=== PATIENT | female | born 2000 | race Caucasian/White ===

== ENCOUNTER 2024-11-17 09:27 | Outpatient (AMB) | payer BC, SELFPAY ==
--- NOTE | 2024-11-17 09:36 | AMB.OBINITIA ---
Vital Signs 11/17/24 09:37 Height 1.7 m Height Method Stated Weight 76.771 kg Weight Measurement Method Standing Scale BMI 26.5 BP 127/77 Blood Pressure Source Automatic Cuff Blood Pressure Location Right Upper Arm Position Sitting Respiration 18 Pulse 83 Pulse Source Monitor Temp 98.1 F Temp Source Temporal Artery Scan Pulse Oximetry (%) 98 Oxygen Delivery Method Room Air Allergies/Home Meds Allergies & Medications Allergies NKA Allergy (Unknown, Uncoded 11/17/24 09:38) Medication Reconciliation vitamins with calcium no.72-iron 29 mg-folic acid 1 mg tablet ( Plus) 1 tab PO QDAY 90 days #90 tabs 11/17/24 [Rx] vits no.126-ferrous fum 28 mg iron-folic acid 800 mcg tablet (Classic ) tab PO 11/17/24 [History Confirmed 11/17/24] Intake Visit Data Collection New Patient or Established: Established Patient (seen at [facility] within 3 years) Reason for Visit:: obi Do You Feel Safe at Home: Yes Authorities Contacted: N/A PCP or OBGYN visit in last 3 months: Yes Last menstrual period: 09/28/24 Pain Present Currently: No Smoking Status Smoking Status: Never smoker Questionnaires Covid-19 Vaccine Questionnaire Has patient been vacinated for Covid-19 Have you been vacinated for Covid-19: Yes PHQ-9 PHQ-2 Over the last 2 weeks, how often have you been bothered by any of the following problems? 1. Little interest or pleasure in doing things: not at all 2. Feeling down, depressed, or hopeless: not at all Total score: 0 Depression screen completed yes Social History Living Situation History Marital Status: Single Lives With: Children Housing: House Tobacco History Smoking Status: Never smoker Alcohol History Alcohol Intake: Never Domestic Abuse History Do You Feel Safe at Home: Yes Past Medical History Past Medical History Have you ever been diagnosed with any of the following: Cardiology Problems Hypercholesterolemia: Yes Congestive Heart Failure: No Respiratory Problems Chronic Obstructive Pulmonary Disease (COPD): No Genital/Urinary Problems Renal Disease: No Endocrine Problems Diabetes Mellitus Type 1: No Diabetes Mellitus Type 2: No Other Problems Cancer: No History of Present Illness HPI Narrative 24-year-old 1 para 0 for initial OB appointment. Both patient and partner are happy about the . Last. September 28, 2024. EDC July 06, 2025. Menarche was at 15. Reports menses are every month x 2 days. Good dates. Patient denies social habits. Denies surgeries. Denies chronic illness. Denies SIB complaints. OB Initial Visit OB Flowsheet OB Flowsheet Initial Weight: Not Recorded Date <del>?</del> EGA Weight Edema CTX Effacement BP Fundal ht Pres Dilation Effacement Station Visit Note Alb Glu FHR Mov 11/17/24 <del>?</del> 7w 1d 76.771 kg absent absent 127/77 7 24-year-old 1 para 0 for initial OB. Denies SAB complaints. Last period September 28, 2024. EDC July 05, 2025. Good dates. Denies chronic illness. Denies social habits. Denies surgeries. Patient is currently taking vitamins. Schedule ultrasound for viability and dating. OB panel today. Prescription for vitamins. Discussed diet and weight gain to be expected. Discussed first trimester discomforts. Return in 4 weeks for OB check and NIPT. Spinal muscular atrophy and cystic fibrosis screens were done today with panel 24-year-old 1 para 0 for initial OB. Denies SAB complaints. Last period September 28, 2024. EDC July 05, 2025. Good dates. Denies chronic illness. Denies social habits. Denies surgeries. Patient is currently taking vitamins. Schedule ultrasound for viability and dating. OB panel today. Prescription for vitamins. Discussed diet and weight gain to be expected. Discussed first trimester discomforts. Return in 4 weeks for OB check and NIPT. Spinal muscular atrophy and cystic fibrosis screens were done today with panel. UA: pro-,glucose-, NIT-,ZAC- Menstrual History Menstrual reliability: definite Flow: normal Menstrual regularity: regular Monthly: Yes Age at menarche: 15 On control pills at conception: No Date of positive home test: 10/26/24 OB History : 1 Infection History & Risk Evaluation History of STDs: none HIV risk evaluation: low risk Hepatitis B risk evaluation: low risk Varicella/chicken pox status: immunized Genetic Screening & History Genetic Screening/Teratology Counseling - Includes patient, baby's father, or anyone in either family with: 1. Patient's age 35 years or older as of estimated date of delivery: No 2. Thalassemia (Serbian, Mongolian, Mediterranean, or Background); MCV less than 80: No 3. Neural Tube Defect (Meningomyelocele, Spina Bifida, or Anencephaly): No 4. Congenital Heart Defect: No 5. Down Syndrome: No 6. Elan-Sachs (Ashkenazi Gnosticism, Cajun, Czech [place]): No 7. Lala Disease (Ashkenazi Gnosticism): No 8. Familial Dysautonomia (Ashkenazi Gnosticism): No 9. Sickle Cell Disease or Trait (): No 10. Hemophilia or other blood disorders: No 11. Muscular Dystrophy: No 12. Cystic Fibrosis: No 13. Lunenburg's Chorea: No 14. Mental Retardation/Autism: No 15. Other inherited genetic or chromosomal disorder: No 16. Maternal Metabolic Disorder (EG,TYPE 1 Diabetes, PKU): No 17. Patient or baby's father had a child with defects not listed above: No 18. Recurrent loss or a stillbirth: No 19. Medications (including supplements, vitamins, herbs or otc drugs)/illicit/recreational drugs/alcohol since last menstrual period: No 20. Any other: No Infection History 1. Live with someone with TB or exposed to TB: No 2. Rash or viral illness since last menstrual period: No 3. Hepatitis B,C: No Other (see comments) Source: [employer] Review of Systems Review of Systems Systems Reviewed: All systems reviewed, normal except as documented Exam General Limitations: no limitations General Appearance: alert, in no apparent distress, comfortable, cooperative, healthy appearing, well developed and well groomed Chest Chest inspection: Present normal inspection and symmetric chest wall rise Resp Respiratory exam: Present normal lung sounds bilaterally Card Cardiovascular exam: Present regular rate, normal rhythm and normal heart sounds Abdominal Abdominal exam: Present soft and normal bowel sounds Psych Psychiatric exam: Present normal affect and normal mood Assessment & Plan Diagnosis / Problem List (1) Encounter for supervision of normal first , first trimester: Status: Acute Plan Refill vitamins. Discussed diet and weight gain with patient. Encouraged regular exercise 40 minutes a day. Discussed SAB precautions. panel with cystic fibrosis screening and spinal muscular atrophy screen today. Schedule ultrasound for viability and dating. Return in 4 weeks OB check Additional Plan Follow Up: 4 Weeks (obc) Office Procedures OB Clinic LOC & Office Proc's Nursing/Assessment Patient Status: Initial/New Patient OB Clinic Nursing Assessment: Medication Reconciliation, Update PMH in EMR and Vital Signs OB Clinic Coordination of Care: Complex Care and Chronic Disease 1-5, Education Complex Pt/Fam, Consent,records obtained, informed consent, Lab and Imaging orders, Results/Orders obtained and Staff clarify orders New Patient Charge New Patient Point Assignment: [id number] New Patient Point Charge: SECRETARY SPECIALIST Level 3 ([id number])
[2024-11-17 09:37] VITALS: BP 127/77; PULSE 83; RESP 18; TEMP 36.7; O2SAT 98; BMI 26.5
== END 2024-11-17 09:54 | disposition home or self-care (01) ==
LOC: HODSOBC 09:27
PROVIDERS: PCP Physician Assistant; Referring Provider Physician Assistant; Supervising Provider Advanced Practice Midwife; Visit Provider Advanced Practice Midwife
DX: Z34.01 Encounter for supervision of normal first pregnancy, first trimester (principal); Z3A.01 Less than 8 weeks gestation of pregnancy; Z36.8A Encounter for antenatal screening for other genetic defects
CPT/HCPCS: 99203; G0463

== ENCOUNTER 2024-12-21 14:51 | Outpatient (AMB) | payer BC, SELFPAY ==
--- NOTE | 2024-12-21 15:23 | OBCLNT_ITS ---
Vital Signs 12/21/24 15:24 Height 1.7 m Height Method Stated Weight 75.523 kg Weight Measurement Method Standing Scale BMI 26.1 BP 111/70 Blood Pressure Source Automatic Cuff Blood Pressure Location Right Upper Arm Position Sitting Respiration 14 Pulse 66 Pulse Source Monitor Temp 97.9 F Temp Source Oral Pulse Oximetry (%) 98 Oxygen Delivery Method Room Air Allergies/Home Meds Allergies & Medications Allergies NKA Allergy (Unknown, Uncoded 12/21/24 16:38) Medication Reconciliation vitamins with calcium no.72-iron 29 mg-folic acid 1 mg tablet ( Plus) 1 tab PO QDAY 90 days #90 tabs 11/17/24 [Rx Confirmed 12/21/24] vits no.126-ferrous fum 28 mg iron-folic acid 800 mcg tablet (Classic ) tab PO 11/17/24 [History Confirmed 11/17/24] Intake Visit Data Collection New Patient or Established: Established Patient (seen at [facility] within 3 years) Reason for Visit:: CARE Seen by Clinical Staff ONLY (RN/MA): No Supportability Engineer Required: No Do You Feel Safe at Home: Yes Authorities Contacted: N/A PCP or OBGYN visit in last 3 months: Yes Hx Now: Yes Are you currently on any form of Control: No Pain Present Currently: No Pain Scale Used: Quinones-Prabhakar/Numerical Pain scale:: 0 Smoking Status Smoking Status: Never smoker Questionnaires Covid-19 Vaccine Questionnaire Has patient been vacinated for Covid-19 Have you been vacinated for Covid-19: Yes PHQ-9 PHQ-2 Over the last 2 weeks, how often have you been bothered by any of the following problems? 1. Little interest or pleasure in doing things: not at all 2. Feeling down, depressed, or hopeless: not at all Total score: 0 PHQ-9 3. Trouble falling or staying asleep, or sleeping too much: Not at all 4. Feeling tired or having little energy: Not at all 5. Poor appetite or overeating: Not at all 6. Feeling bad about yourself - or that you are a failure or have let yourself or your family down: Not at all 7. Trouble concentrating on things, such as reading the newspaper or watching television: Not at all 8. Moving or speaking so slowly that other people could have noticed? - Or the opposite - being so fidgety or restless that you have been moving around a lot more than usual: not at all 9. Thoughts that you would be better off or of hurting yourself in some way: Not at all Total score: 0 Source: Developed by Drs. Tanmay Huffman, Alida Diaz, Rodrigo Luna and colleagues, with an educational tanvir from [employer] ( [employer] ). 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 Denies SAB complaints. Last period September 28, 2024. EDC July 05, 2025. Good dates. Denies chronic illness. Denies social habits. Denies surgeries. Patient is currently taking vitamins. Schedule ultrasound for viability and dating. OB panel today. Prescription for vitamins. Discussed diet and weight gain to be expected. Discussed first trimester discomforts. Return in 4 weeks for OB check and NIPT. Spinal muscular atrophy and cystic fibrosis screens were done today with panel 24-year-old 1 para 0 for initial OB. Denies SAB complaints. Last period September 28, 2024. EDC July 05, 2025. Good dates. Denies chronic illness. Denies social habits. Denies surgeries. Patient is currently taking vitamins. Schedule ultrasound for viability and dating. OB panel today. Prescription for vitamins. Discussed diet and weight gain to be expected. Discussed first trimester discomforts. Return in 4 weeks for OB check and NIPT. Spinal muscular atrophy and cystic fibrosis screens were done today with panel. UA: pro-,glucose-, NIT-,ZAC- 12/21/24 -?-?-?-?-?-?-?-?-?-?-?-?- 12w 0d 75.523 kg 111/70 Denies bleeding, leaking or cramps. denies 1st trimester discomfort. sono [facility] 11/25: 7w5. +FHT. IUP 11w3, no fht with doppler patient sent to [facility] for sono to evaluate viability. will do NIPT NV if fetus viable. discuss SAB precaution [facility] Calculator Estimated Delivery Date Method Current WG Current Estimate 07/05/25 LMP (Certain) 12w 0d Notes Visit Date: 12/21/24 Last Updated by: Angelina Wren, CNChandni 0+, abs-,rpr;;nr, rub imm, hbsag-,hiv-,hc-, GC/CT- neg carrier screens. 24 yo . LMP: 09/28/24. EDC 07/08/25. sono 11/25: 7w5; EDC by sono: 07/10/25 Office Procedures OB Clinic LOC & Office Proc's Nursing/Assessment Patient Status: Established Patient OB Clinic Nursing Assessment: Medication Reconciliation, Update PMH in EMR and Vital Signs OB Clinic Coordination of Care: Complex Care and Chronic Disease 1-5, Consent,records obtained, informed consent, Education Simp Pt/Fam, Lab and Imaging orders, Results/Orders obtained and Staff clarify orders Special Needs: Heart tones Established Patient Charge Established Patient Point Assignment: 135 Established Patient Point Charge: EP Level 4 (120-155) Assessment & Plan Diagnosis / Problem List (1) Encounter for supervision of normal first , first trimester: Status: Acute Plan To [facility] for sono for viability. no FHT with doppler, unable to See + cardiac motion on office sono. patient will need NIPT NV if fetus viable. discuss sab precaution. rtc 2 week Additional Plan Follow Up: 2 Weeks
[2024-12-21 15:24] VITALS: BP 111/70; PULSE 66; RESP 14; TEMP 36.6; O2SAT 98; BMI 26.1
== END 2024-12-21 16:24 | disposition home or self-care (01) ==
LOC: HODSOBC 14:51
PROVIDERS: PCP Physician Assistant; Referring Provider Physician Assistant; Supervising Provider Advanced Practice Midwife; Visit Provider Advanced Practice Midwife
DX: Z34.01 Encounter for supervision of normal first pregnancy, first trimester (principal); Z3A.12 12 weeks gestation of pregnancy
CPT/HCPCS: 99214; G0463

== ENCOUNTER 2024-12-21 16:31 | Emergency (ER) | payer BC, SELFPAY ==
[2024-12-21 16:40] VITALS: BP 121/67; PULSE 67; RESP 16; TEMP 36.8; O2SAT 98
--- NOTE | 2024-12-21 16:44 | XR_ITS ---
Examination: Complete OB ultrasound, less than 14 weeks, transabdominal Date and time of exam: December 21, 2024 1651 hours, unable to hear heart tones on examination by physician today Technique: Obstetrical ultrasound images less than 14 weeks performed via transabdominal imaging Findings: A normal shaped single intrauterine gestation is present in the uterus. pole 5.1 cm corresponds to 11 weeks 6 days gestational age Cardiac motion 164 BPM Ultrasonographic survey of visible and placental structures unremarkable. Amniotic fluid volume appears appropriate for this estimated gestational age. Right ovary 5.8 cm arterial flow 3.1 cm cyst Left ovary 3.3 cm arterial flow IMPRESSION: Viable intrauterine gestation of 11 weeks 6 days.
--- NOTE | 2024-12-21 16:47 | PD.EDRME ---
Rapid Medical Screening Exam RME Arrival date/time: 12/21/24 16:31 24-year-old female approximately 11 weeks presents to the emergency department stating she was seen by ADDICTION MEDICINE PHYSICIAN because she was unable to hear heart tones Chief Complaint: OB/Uterine Contractions Vital signs: Vital Signs Temperature 98.3 F 12/21/24 16:40 Pulse Rate 67 12/21/24 16:40 Respiratory Rate 16 12/21/24 16:40 Blood Pressure 121/67 12/21/24 16:40 Pulse Oximetry (%) 98 12/21/24 16:40 Oxygen Delivery Method Room Air 12/21/24 16:40
[2024-12-21 18:14] LABS: Basophils % (Auto) 0 % (0-2.5); Eosinophils # (Auto) 0.1 Thou/mm3 (0.0-0.5); Eosinophils % (Auto) 1 % (0-10); Hematocrit 36.5 % (36.0-46.0); Hemoglobin 13.2 g/dL (12.0-16.0); Immature Granulocytes % (Auto) 0 % (0-0); Immature Granulocytes Auto 0.04 Thou/mm3 (0.00-0.00); Lymphocytes # (Auto) 1.5 Thou/mm3 (1.0-4.8); Lymphocytes % (Auto) 14 % (10-50); Mean Corpuscular HGB Conc 36.2 g/dl (31.0-37.0); Mean Corpuscular Hemoglobin 31.1 pg (25.0-35.0); Mean Corpuscular Volume 86 fL (80-100); Monocytes # (Auto) 0.8 Thou/mm3 (0.0-0.8); Monocytes % (Auto) 7 % (0-12); Neutrophils # (Auto) 8.2 Thou/mm3 (1.8-7.7); Neutrophils % (Auto) 77 % (37-80); Nucleated Red Blood Cell % 0 /100 WBC (0); Platelet Count 275 Thou/mm3 (140-440); RDW Standard Deviation 40.4 fL (36.4-46.3); Red Blood Count 4.24 Miln/mm3 (4.00-5.20); White Blood Count 10.6 Thou/mm3 (3.6-11.0)
[2024-12-21 19:06] LABS: Alanine Aminotransferase 18 U/L (10-49); Albumin, Serum 4.6 gm/dL (3.5-5.0); Albumin/Globulin Ratio 1.8 (1.2-2.2); Alkaline Phosphatase 65 U/L (46-116); Anion Gap 12 (7-16); Aspartate Amino Transferase 23 U/L (0-34); BUN/Creatinine Ratio 8 Ratio (12-20); Bilirubin,Total 0.5 mg/dL (0.3-1.2); Blood Urea Nitrogen 5 mg/dL (9-23); Calcium 10.1 mg/dL (8.3-10.6); Calcium (Corrected) 10.1 mg/dL (8.5-10.1); Carbon Dioxide 23.5 mMol/L (20.0-31.0); Chloride 100 mMol/L (98-107); Creatinine (Component) 0.6 mg/dL (0.6-1.3); Globulin 2.5 gm/dL (2.3-3.5); Glucose 81 mg/dL (74-106); Osmolality,Calculated 266 (275-295); Potassium 4.2 mMol/L (3.4-5.1); Sodium 135 mMol/L (136-145); Total Protein 7.1 gm/dL (5.7-8.2); eGFR > 60 See Note
[2024-12-21 19:51] LABS: Beta HCG,Quantitative 100494 mIU/mL (<5.0)
--- NOTE | 2024-12-21 20:42 | PD.EDPREG ---
ED OB Contraction Preg RMI/HPI General Chief complaint: OB/Uterine Contractions Stated complaint: 12 WKS PREG; SENT BY MARGARITA WHO WANTS CALL Time Seen by Provider: 12/21/24 20:41 Arrival date/time: 12/21/24 16:31 RME / HPI RME / HPI Narrative: 12/21/24 16:31 24-year-old female approximately 11 weeks presents to the emergency department stating she was seen by BAKING POWDER MIXER because she was unable to hear heart tones --------- Dr. Alberto?s Main ED Evaluation: 24yo female who is ~11 weeks gestation presents to the ED after being sent over by her BAKING POWDER MIXER. Patient states she was seen by Angelina Wren today, reporting she was unable to find the heart tones or visualize the fetus on an ultrasound, so she sent her over for evaluation. Patient denies any fever, chills, abdominal cramping, vaginal spotting or any other associated symptoms. NKA. Related Data Home Medications ?Medication ?Instructions ?Recorded ?Confirmed vits no.126-ferrous fum tab PO 11/17/24 11/17/24 28 mg iron-folic acid 800 mcg tablet (Classic ) Previous Rx's ?Medication ?Instructions ?Recorded vitamins with calcium 1 tab PO QDAY 90 days #90 tabs 11/17/24 no.72-iron 29 mg-folic acid 1 mg tablet ( Plus) Allergies Allergy/AdvReac Type Severity Reaction Status Date / Time NKA Allergy Unknown Uncoded 12/21/24 16:38 Review of Systems Review of Systems Systems Reviewed: All systems reviewed, normal except as documented ED Exam Narrative Physical exam: GENERAL APPEARANCE: alert and oriented x 4, well-developed, well-nourished, no acute distress VITALS: All vitals were reviewed and the pulse ox is 98% on room air, which is normal according to my interpretation. HEENT: Normocephalic, atraumatic; pupils equal, round, reactive to light; EOMI; mucous membranes pink, moist; oropharynx clear NECK: Supple LUNGS: CTABL; no wheezes, no rales, no rhonchi HEART: Regular rate, regular rhythm; normal S1, S2; no murmurs ABDOMEN: non distended; normal BS; soft, no tenderness, no guarding, no rebound; no masses, no organomegaly, no hernia BACK: no CVA tenderness EXTREMITIES: atraumatic; no edema NEUROLOGIC: awake; alert and oriented x4; cranial nerves II-XII grossly intact; no focal sensory or motor deficits PSYCHIATRIC: appropriate mood and affect SKIN: warm, dry, normal color; no rashes Course Quality Measures none Orders Category Date Time Status US OB <= 14 weeks fetus Stat Exams 12/21/24 16:44 Completed ABO/RH Type Stat Lab 12/21/24 17:52 Completed Beta HCG,Quantitative Stat Lab 12/21/24 17:52 Completed CBC Stat Lab 12/21/24 17:52 Completed Comprehensive Metabolic Panel Stat Lab 12/21/24 17:52 Completed Vital Signs Vital signs: Vital Signs Temperature 98.3 F 12/21/24 16:40 Pulse Rate 67 12/21/24 16:40 Respiratory Rate 16 12/21/24 16:40 Blood Pressure 121/67 12/21/24 16:40 Pulse Oximetry (%) 98 12/21/24 16:40 Oxygen Delivery Method Room Air 12/21/24 16:40 OB/Uterine Contractions MDM Narrative MDM Narrative:: Scribe Attestation: 12/21/24 - Shahla Herrera am scribing for and in the presence of Dr. Alberto. Patient data External records reviewed:: [facility] previous records (Per chart review, patient has no relevant previous ED visits.) Clinical information provided by:: patient Social determinants that could affect healthcare access:: none Patient has the following chronic illnesses:: none How is presenting disease/condition affected by chronic disease/condition?: no chronic disease Evaluation data The following diagnostics were reviewed and interpreted by me:: lab results and radiology exam(s) Lab and/or radiology exams considered but not ordered:: none Interpretation Summary: CBC and CBC are normal. Beta HCG is [id number]. ------- [facility] [place] [facility] Report Signed Patient: CINDY CHAMPAGNE Record#: [id number] Birthdate: 2000 Age/Sex: 24 / F Location: [facility] Attending Dr: Ordering Physician: Braenn BOND)Jhon NP Date of Service: 12/21/24 Procedure(s): US OB <= 14 weeks fetus Accession Number(s): [id number] cc: Breann BOND)Jhon NP; Chico Samuels MD; NO PRIMARY/FAMILY,PHYSICIAN~ Examination: Complete OB ultrasound, less than 14 weeks, transabdominal Date and time of exam: December 21, 2024 1651 hours, unable to hear heart tones on examination by physician today Technique: Obstetrical ultrasound images less than 14 weeks performed via transabdominal imaging Findings: A normal shaped single intrauterine gestation is present in the uterus. pole 5.1 cm corresponds to 11 weeks 6 days gestational age Cardiac motion 164 BPM Ultrasonographic survey of visible and placental structures unremarkable. Amniotic fluid volume appears appropriate for this estimated gestational age. Right ovary 5.8 cm arterial flow 3.1 cm cyst Left ovary 3.3 cm arterial flow IMPRESSION: Viable intrauterine gestation of 11 weeks 6 days. Dictated By: Chico Samuels MD Signed By: <Electronically signed by Chico Samuels MD in OV> 12/21/24 4329 Medications / Prescriptions Medications or Prescriptions considered but not ordered:: none Medication administrations:: none Consultations Consultation(s) initiated? (list below): No Diagnosis OB Contractions Differential Diagnosis: other ( demise, completed miscarriage, inevitable miscarriage, normal IP) Most likely diagnosis given after review of the tests above:: see clinical impression below Admission Indicated Admission indicated?: not indicated Explain why admission is indicated or not indicated:: Diagnostics are unremarkable. Patient is stable to be discharged home. Admission Request Was there a request for admission?: No Disposition Plan Disposition Plan: Discharge Discharge Attestation Discharge Attestation: The patient and all family members were given an opportunity to ask questions and understood the discharge instructions. Discharge instructions specifically effects, indications for sooner follow up or return to the emergency department, and the expected course of current diagnosis. Patient condition: Stable Discharge Plan Plan Patient Disposition: HOME (Self Care) Discharge Disposition comment: Stable for discharge home Patient condition on transfer: Stable Prescriptions/Referrals Prescriptions/Med Rec: No Action Classic 28 mg iron- 800 mcg tablet PO Plus 29 mg iron- 1 mg tablet 1 tab PO QDAY 90 Days Qty: 90 3RF Referrals: Angelina Wren CNM [Certified Nurse Convention Planner] - In 1 week No Primary/Family,Physician [Primary Care Provider] - In 1 week Problem List Clinical Impression: Encounter for supervision of normal first , first trimester Patient/Caregiver Discharge Instructions Discharge Activity: activity as tolerated Education Materials: First Trimester Additional Instructions: Please return to the emergency department if you have any worsening or any further medical problems and we will help you. Otherwise you should follow-up with your primary care doctor within the next several days Today your ultrasound showed that the baby is 11 weeks and 6 days old. Baby has a normal heart rate, and there does not seem to be any problems Print Language: Slovak Stand Alone Forms: Kim Award Info., Patient Portal Info Letter
[2024-12-21 20:52] VITALS: RESP 16
== END 2024-12-21 20:52 | disposition home or self-care (01) ==
PROVIDERS: Nurse Practitioner Primary Care; Emergency Provider Emergency Medicine
DX: Z34.01 Encounter for supervision of normal first pregnancy, first trimester (principal); Z3A.12 12 weeks gestation of pregnancy
CPT/HCPCS: 36415; 76801; 80053; 84702; 85025; 86900; 86901; 99284

== ENCOUNTER 2025-01-06 15:34 | Outpatient (AMB) | payer BC, SELFPAY ==
[2025-01-06 15:50] VITALS: BP 110/67; PULSE 94; RESP 18; TEMP 36; O2SAT 98; BMI 22.9
--- NOTE | 2025-01-06 15:50 | AMB.OBVISIT ---
Vital Signs 01/06/25 15:50 Height 1.7 m Height Method Stated Weight 66.338 kg Weight Measurement Method Standing Scale BMI 22.9 BP 110/67 Blood Pressure Source Automatic Cuff Blood Pressure Location Left Upper Arm Position Standing Respiration 18 Pulse 94 Pulse Source Monitor Temp 96.8 F Temp Source Oral Pulse Oximetry (%) 98 Oxygen Delivery Method Room Air Allergies/Home Meds Allergies & Medications Allergies NKA Allergy (Unknown, Uncoded 01/06/25 15:52) Medication Reconciliation vitamins with calcium no.72-iron 29 mg-folic acid 1 mg tablet ( Plus) 1 tab PO QDAY 90 days #90 tabs 11/17/24 [Rx Confirmed 01/06/25] vits no.126-ferrous fum 28 mg iron-folic acid 800 mcg tablet (Classic ) tab PO 11/17/24 [History Confirmed 01/06/25] vitamin-ferrous fumarate 28 mg iron-folic acid 800 mcg tablet ( Vitamins with Minerals) 1 tab PO QDAY #60 tabs 01/06/25 [Rx] Intake Visit Data Collection New Patient or Established: Established Patient (seen at [facility] within 3 years) Reason for Visit:: OBC Seen by Clinical Staff ONLY (RN/MA): No Preservationist Required: No Do You Feel Safe at Home: Yes Authorities Contacted: N/A PCP or OBGYN visit in last 3 months: Yes Hx Now: No Are you currently on any form of Control: No Smoking Status Smoking Status: Never smoker Questionnaires PHQ-9 PHQ-2 Over the last 2 weeks, how often have you been bothered by any of the following problems? 1. Little interest or pleasure in doing things: not at all PHQ-9 8. Moving or speaking so slowly that other people could have noticed? - Or the opposite - being so fidgety or restless that you have been moving around a lot more than usual: not at all Source: Developed by Drs. Tanmay Huffman, Alida Diaz, Rodrigo Luna and colleagues, with an educational tanvir from [employer]. 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 Denies SAB complaints. Last period September 28, 2024. EDC July 05, 2025. Good dates. Denies chronic illness. Denies social habits. Denies surgeries. Patient is currently taking vitamins. Schedule ultrasound for viability and dating. OB panel today. Prescription for vitamins. Discussed diet and weight gain to be expected. Discussed first trimester discomforts. Return in 4 weeks for OB check and NIPT. Spinal muscular atrophy and cystic fibrosis screens were done today with panel 24-year-old 1 para 0 for initial OB. Denies SAB complaints. Last period September 28, 2024. EDC July 05, 2025. Good dates. Denies chronic illness. Denies social habits. Denies surgeries. Patient is currently taking vitamins. Schedule ultrasound for viability and dating. OB panel today. Prescription for vitamins. Discussed diet and weight gain to be expected. Discussed first trimester discomforts. Return in 4 weeks for OB check and NIPT. Spinal muscular atrophy and cystic fibrosis screens were done today with panel. UA: pro-,glucose-, NIT-,ZAC- 12/21/24 <del>?</del> 12w 0d 75.523 kg 111/70 Denies bleeding, leaking or cramps. denies 1st trimester discomfort. sono at [facility] 11/25: 7w5. +FHT. IUP 11w3, no fht with doppler patient sent to [facility] for sono to evaluate viability. will do NIPT NV if fetus viable. discuss SAB precaution 01/06/25 <del>?</del> 14w 2d 66.338 kg 110/67 absent unknown 14 145 active denies leaking, bleeding or cramps. reports light FM MFM appt 02/25/25, discuss sab precaution. hydrate. rtc 4 week OBC ABY Calculator Estimated Delivery Date Method Current WG Current Estimate 07/05/25 LMP (Certain) 14w 2d Notes Visit Date: 12/21/24 Last Updated by: Angelina Wren, CNM 0+, abs-,rpr;;nr, rub imm, hbsag-,hiv-,hc-, GC/CT- neg carrier screens. 24 yo . LMP: 09/28/24. EDC 07/08/25. sono 11/25: 7w5; EDC by sono: 07/10/25 Office Procedures OB Clinic LOC & Office Proc's Nursing/Assessment Patient Status: Established Patient OB Clinic Nursing Assessment: Medication Reconciliation, Update PMH in EMR and Vital Signs OB Clinic Coordination of Care: Education Complex Pt/Fam, Consent,records obtained, informed consent, Lab and Imaging orders, Results/Orders obtained and Staff clarify orders Special Needs: Heart tones Established Patient Charge Established Patient Point Assignment: 115 Established Patient Point Charge: EP Level 3 (80-115) Assessment & Plan Diagnosis / Problem List (1) Supervision of high risk , unspecified, unspecified trimester: Status: Acute Plan mfm appointment 02/25/25, discuss sab precaution. hydrate. RTC 4 week obc Additional Plan Follow Up: 4 Weeks (obc)
== END 2025-01-06 16:09 | disposition home or self-care (01) ==
LOC: HODSOBC 15:34
PROVIDERS: PCP Advanced Practice Midwife; Referring Provider Advanced Practice Midwife; Supervising Provider Advanced Practice Midwife; Visit Provider Advanced Practice Midwife
DX: O09.92 Supervision of high risk pregnancy, unspecified, second trimester (principal); Z3A.14 14 weeks gestation of pregnancy
CPT/HCPCS: 99213; G0463

== ENCOUNTER 2025-02-08 14:58 | Outpatient (AMB) | payer BC, SELFPAY ==
[2025-02-08 15:18] VITALS: BP 108/72; PULSE 92; RESP 17; TEMP 36.8; O2SAT 95; BMI 26.9
--- NOTE | 2025-02-08 15:18 | OBCLNT_ITS ---
Vital Signs 02/08/25 15:18 Height 1.7 m Height Method Measured Weight 77.678 kg Weight Measurement Method Standing Scale BMI 26.9 BP 108/72 Blood Pressure Source Automatic Cuff Blood Pressure Location Right Upper Arm Position Sitting Respiration 17 Pulse 92 Pulse Source Monitor Temp 98.3 F Temp Source Temporal Artery Scan Pulse Oximetry (%) 95 Oxygen Delivery Method Room Air Allergies/Home Meds Allergies & Medications Allergies NKA Allergy (Unknown, Uncoded 02/08/25 15:18) Medication Reconciliation vits no.126-ferrous fum 28 mg iron-folic acid 800 mcg tablet (Classic ) tab PO 11/17/24 [History Confirmed 02/08/25] Intake Visit Data Collection New Patient or Established: Established Patient (seen at [facility] within 3 years) Reason for Visit:: OBC Consent obtained for Telemed Visit: No Seen by Clinical Staff ONLY (RN/MA): No 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 1. Little interest or pleasure in doing things: not at all PHQ-9 8. Moving or speaking so slowly that other people could have noticed? - Or the opposite - being so fidgety or restless that you have been moving around a lot more than usual: not at all Source: Developed by Drs. Tanmay Huffman, Alida Diaz, Rodrigo Luna and colleagues, with an educational tanvir from [employer]. 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 Denies SAB complaints. Last period September 28, 2024. EDC July 05, 2025. Good dates. Denies chronic illness. Denies social habits. Denies surgeries. Patient is currently taking vitamins. Schedule ultrasound for viability and dating. OB panel today. Prescription for vitamins. Discussed diet and weight gain to be expected. Discussed first trimester discomforts. Return in 4 weeks for OB check and NIPT. Spinal muscular atrophy and cystic fibrosis screens were done today with panel 24-year-old 1 para 0 for initial OB. Denies SAB complaints. Last period September 28, 2024. EDC July 05, 2025. Good dates. Denies chronic illness. Denies social habits. Denies surgeries. Patient is currently taking vitamins. Schedule ultrasound for viability and dating. OB panel today. Prescription for vitamins. Discussed diet and weight gain to be expected. Discussed first trimester discomforts. Return in 4 weeks for OB check and NIPT. Spinal muscular atrophy and cystic fibrosis screens were done today with panel. UA: pro-,glucose-, NIT-,ZAC- 12/21/24 -?-?-?-?-?-?-?-?-?-?-?-?- 12w 0d 75.523 kg 111/70 Denies bleeding, leaking or cramps. denies 1st trimester discomfort. sono at [facility] 11/25: 7w5. +FHT. IUP 11w3, no fht with doppler patient sent to [facility] for sono to evaluate viability. will do NIPT NV if fetus viable. discuss SAB precaution 01/06/25 -?-?-?-?-?-?-?-?-?-?-?-?- 14w 2d 66.338 kg 110/67 absent unknown 14 145 active denies leaking, bleeding or cramps. reports light FM MFM appt 02/25/25, discuss sab precaution. hydrate. rtc 4 week OBC 02/08/25 -?-?-?-?-?-?-?-?-?-?-?-?- 19w 0d 77.678 kg 108/72 absent unknown 19 145 active Denies leaking. Denies bleeding. Denies cramps. Light movement positive patient has her anatomy scan coming up February 25. discuss sab precaution, AFP, mfm appt 02/25, discuss sab precaution. rtc 4 week obc ABY Calculator Estimated Delivery Date Method Current WG Current Estimate 07/05/25 LMP (Certain) 19w 0d Notes Visit Date: 02/08/25 Last Updated by: Angelina Wren CNM 02/08: NIPT-/Male, carrier screen- Visit Date: 12/21/24 Last Updated by: Angelina Wren CNM 0+, abs-,rpr;;nr, rub imm, hbsag-,hiv-,hc-, GC/CT- neg carrier screens. 24 yo . LMP: 09/28/24. EDC 07/08/25. sono 11/25: 7w5; EDC by sono: 07/10/25 Office Procedures OB Clinic LOC & Office Proc's Nursing/Assessment Patient Status: Established Patient OB Clinic Nursing Assessment: Medication Reconciliation and Update PMH in EMR OB Clinic Coordination of Care: Complex Care and Chronic Disease 1-5, Consent,records obtained, informed consent, Education Simp Pt/Fam and 4+ Aut horizations needed Special Needs: Heart tones Established Patient Charge Established Patient Point Assignment: 115 Established Patient Point Charge: EP Level 3 (80-115) Assessment & Plan Diagnosis / Problem List (1) Encounter for supervision of other normal , second trimester: Status: Acute Plan discuss venkat precaution, AFP, anatomy scan 02/25, hydrate, continue PNV, rtc 4 week obc Additional Plan Follow Up: 4 Weeks (obc)
== END 2025-02-08 16:13 | disposition home or self-care (01) ==
LOC: HODSOBC 14:58
PROVIDERS: PCP Advanced Practice Midwife; Referring Provider Advanced Practice Midwife; Supervising Provider Advanced Practice Midwife; Visit Provider Advanced Practice Midwife
DX: Z34.02 Encounter for supervision of normal first pregnancy, second trimester (principal); Z3A.19 19 weeks gestation of pregnancy
CPT/HCPCS: 99213; G0463

== ENCOUNTER 2025-02-17 10:44 | Observation (INO) | payer BC, SELFPAY ==
[2025-02-17 10:54] VITALS: BP 131/82; PULSE 91
[2025-02-17 11:11] VITALS: BP 94/51; PULSE 88
[2025-02-17 11:14] VITALS: BP 131/82; PULSE 91; RESP 18; RESP 99; TEMP 36.9; BMI 26.6
--- NOTE | 2025-02-17 11:22 | XR_ITS ---
Examination: Complete OB ultrasound greater than 14 weeks Date and time of exam: February 17, 2025 1140 hours INDICATIONS: Onset vaginal bleeding today Findings: Viable intrauterine single fetus with single amniotic sac presentation cephalic Cardiac motion 140 BPM Placenta anterior grade 2 Umbilical cord insertion seen Amniotic fluid index 11.5 cm Cervix 3.4 cm Ovaries obscured by bowel gas. Composite estimated gestational age based on BPD, head circumference, abdominal circumference, femur length is 20 weeks 1 day Estimated weight 318 g. Survey of intracranial anatomy, spinal anatomy, abdominal anatomy, four-chamber heart performed with no abnormalities identified. Impression: Viable intrauterine gestation cephalic presentation.
[2025-02-17 11:34] LABS: Collection Type, Urine Clean Catch
[2025-02-17 11:44] LABS: Bacteria,Urine 2+; Bilirubin,Urine Negative (Negative); Blood,Urine Negative (Negative); Clarity,Urine Clear (Clear/Hazy); Color,Urine Yellow (Lt Yel-Yel); Glucose, Urine Trace (Negative); Ketones,Urine Negative (Negative); Leukocyte Esterase,Urine Positive (Negative); Nitrite,Urine Negative (Negative); PH,Urine 5.5 (5.0-7.0); Protein,Urine Trace (Neg - Trace); RBC,Urine 5 /hpf (0-3); Specific Gravity,Urine 1.025 (1.001-1.035); Squamous Epithelial Cell,Urine 11 /hpf (0-5); Urobilinogen,Urine Negative mg/dL (0.0-1.0); WBC,Urine 6 /hpf (0-5)
== END 2025-02-17 12:40 | disposition home or self-care (01) ==
PROVIDERS: Admitting Provider Obstetrics & Gynecology; Visit Provider Obstetrics & Gynecology
DX: O26.852 Spotting complicating pregnancy, second trimester (principal); Z3A.20 20 weeks gestation of pregnancy
CPT/HCPCS: 59025; 59899; 76805; 81001; 87086

== ENCOUNTER 2025-03-08 09:52 | Outpatient (AMB) | payer BC, SELFPAY ==
[2025-03-08 10:06] VITALS: BP 110/70; PULSE 99; RESP 17; TEMP 36.6; O2SAT 97; BMI 27.5
--- NOTE | 2025-03-08 10:06 | AMB.OBVISIT ---
Vital Signs 03/08/25 10:06 Height 1.7 m Height Method Measured Weight 79.605 kg Weight Measurement Method Standing Scale BMI 27.5 BP 110/70 Blood Pressure Source Automatic Cuff Blood Pressure Location Right Upper Arm Position Sitting Respiration 17 Pulse 99 Pulse Source Monitor Temp 97.9 F Temp Source Temporal Artery Scan Pulse Oximetry (%) 97 Oxygen Delivery Method Room Air Allergies/Home Meds Allergies & Medications Allergies NKA Allergy (Unknown, Uncoded 03/08/25 10:07) Medication Reconciliation vits no.126-ferrous fum 28 mg iron-folic acid 800 mcg tablet (Classic ) tab PO 11/17/24 [History Confirmed 03/08/25] vits no.130-ferrous fum 27 mg iron-folic acid 800 mcg tablet ( Vitamin) 1 tab PO QDAY pregancy #60 tabs 03/08/25 [Rx] Intake Visit Data Collection New Patient or Established: Established Patient (seen at [facility] within 3 years) Reason for Visit:: OBC Consent obtained for Telemed Visit: No Seen by Clinical Staff ONLY (RN/MA): No 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 1. Little interest or pleasure in doing things: not at all PHQ-9 8. Moving or speaking so slowly that other people could have noticed? - Or the opposite - being so fidgety or restless that you have been moving around a lot more than usual: not at all Source: Developed by Drs. Tanmay Huffman, Alida Diaz, Rodrigo Luna and colleagues, with an educational tanvir from [employer]. 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 Denies SAB complaints. Last period September 28, 2024. EDC July 05, 2025. Good dates. Denies chronic illness. Denies social habits. Denies surgeries. Patient is currently taking vitamins. Schedule ultrasound for viability and dating. OB panel today. Prescription for vitamins. Discussed diet and weight gain to be expected. Discussed first trimester discomforts. Return in 4 weeks for OB check and NIPT. Spinal muscular atrophy and cystic fibrosis screens were done today with panel 24-year-old 1 para 0 for initial OB. Denies SAB complaints. Last period September 28, 2024. EDC July 05, 2025. Good dates. Denies chronic illness. Denies social habits. Denies surgeries. Patient is currently taking vitamins. Schedule ultrasound for viability and dating. OB panel today. Prescription for vitamins. Discussed diet and weight gain to be expected. Discussed first trimester discomforts. Return in 4 weeks for OB check and NIPT. Spinal muscular atrophy and cystic fibrosis screens were done today with panel. UA: pro-,glucose-, NIT-,ZAC- 12/21/24 <del>?</del> 12w 0d 75.523 kg 111/70 Denies bleeding, leaking or cramps. denies 1st trimester discomfort. sono at [facility] 11/25: 7w5. +FHT. IUP 11w3, no fht with doppler patient sent to [facility] for sono to evaluate viability. will do NIPT NV if fetus viable. discuss SAB precaution 01/06/25 <del>?</del> 14w 2d 66.338 kg 110/67 absent unknown 14 145 active denies leaking, bleeding or cramps. reports light FM MFM appt 02/25/25, discuss sab precaution. hydrate. rtc 4 week OBC 02/08/25 <del>?</del> 19w 0d 77.678 kg 108/72 absent unknown 19 145 active Denies leaking. Denies bleeding. Denies cramps. Light movement positive patient has her anatomy scan coming up February 25. discuss sab precaution, AFP, mfm appt 02/25, discuss sab precaution. rtc 4 week obc 03/08/25 <del>?</del> 23w 0d 79.605 kg 110/70 absent unknown 23 155 active No OB complaints. Doing well. Reports movement. Denies contractions. Denies bleeding. Denies leaking Third trimester labs today. Discussed diet and weight. Increase fluids. Discussed precautions. Return in 4 weeks OB check Third trimester labs today. Discussed diet and weight. Increase fluids. Discussed precautions. Return in 4 weeks OB check. f/u mfm 05/06 ABY Calculator Estimated Delivery Date Method Current WG Current Estimate 07/05/25 LMP (Certain) 23w 0d Other Estimates 07/05/25 Ultrasound #1 23w 0d Notes Visit Date: 03/08/25 Last Updated by: Angelina Wren CNM 25 yo . LMP 09/28/24. edc: 07/05/25. O+,abs-, rpr;;nr, rub imm, HBSAG-,HIV-, GC/CT-, NIPT:neg, sma/cf- Visit Date: 02/08/25 Last Updated by: Angelina Wren CNM 02/08: NIPT-/Male, carrier screen- Visit Date: 12/21/24 Last Updated by: Angelina Wren CNM 0+, abs-,rpr;;nr, rub imm, hbsag-,hiv-,hc-, GC/CT- neg carrier screens. 24 yo . LMP: 09/28/24. EDC 07/08/25. sono 11/25: 7w5; EDC by se: 07/10/25 Office Procedures OB Clinic LOC & Office Proc's Nursing/Assessment Patient Status: Established Patient OB Clinic Nursing Assessment: Medication Reconciliation, Update PMH in EMR and Vital Signs OB Clinic Coordination of Care: Complex Care and Chronic Disease 1-5, Consent,records obtained, informed consent, Education Simp Pt/Fam, 4+ Authorizations needed, Lab and Imaging orders, Ref for ancillary service and Results/Orders obtained Special Needs: Heart tones Established Patient Charge Established Patient Point Assignment: 180 Established Patient Point Charge: EP Level 5 (160-above) Assessment & Plan Diagnosis / Problem List (1) Encounter for supervision of other normal , second trimester: Status: Acute (2) Supervision of high risk , unspecified, unspecified trimester: Status: Acute Plan Third trimester labs today. Reviewed labs. Discussed diet and weight. Decrease sugary foods. Discussed labor precautions. Increase fluids. Refill prenatals. Return in 4 weeks OB check. Follow-up maternal- medicine appointment April 26 Additional Plan Follow Up: 2 Weeks 4 Weeks (obc)
== END 2025-03-08 10:31 | disposition home or self-care (01) ==
LOC: HODSOBC 09:52
PROVIDERS: Supervising Provider Advanced Practice Midwife; Visit Provider Advanced Practice Midwife
DX: Z34.02 Encounter for supervision of normal first pregnancy, second trimester (principal); Z3A.23 23 weeks gestation of pregnancy
CPT/HCPCS: 99215; G0463

== ENCOUNTER → 2025-03-15 | Outpatient (CLI) | payer BC, SELFPAY ==
[2025-03-15 10:54] LABS: Glucose,Fasting Gestational 85 mg/dL (70-120)
[2025-03-15 12:15] LABS: Glucose 1 Hour, Gest 164 mg/dL (50-190)
[2025-03-15 12:28] LABS: Glucose 2 Hour,Gest 158 mg/dL (50-165)
[2025-03-15 13:53] LABS: Glucose 3 Hour, Gest 119 mg/dL (50-145)
== END | disposition home or self-care (01) ==
LOC: COPL 09:30
PROVIDERS: PCP Physician Assistant; Referring Provider Advanced Practice Midwife; Visit Provider Advanced Practice Midwife
DX: O24.420 Gestational diabetes mellitus in childbirth, diet controlled (principal); Z3A.00 Weeks of gestation of pregnancy not specified
CPT/HCPCS: 36415; 82951; 82952

== ENCOUNTER 2025-04-08 10:03 | Outpatient (AMB) | payer BC, SELFPAY ==
--- NOTE | 2025-04-08 10:13 | AMB.OBVISIT ---
Vital Signs 04/08/25 10:14 Height 1.7 m Height Method Stated Weight 83.064 kg Weight Measurement Method Standing Scale BMI 28.7 BP 127/79 Blood Pressure Source Automatic Cuff Blood Pressure Location Left Upper Arm Position Sitting Respiration 16 Pulse 109 H Pulse Source Monitor Temp 97.0 F Temp Source Oral Pulse Oximetry (%) 98 Oxygen Delivery Method Room Air Allergies/Home Meds Allergies & Medications Allergies NKA Allergy (Unknown, Uncoded 04/08/25 10:15) Medication Reconciliation vits no.126-ferrous fum 28 mg iron-folic acid 800 mcg tablet (Classic ) tab PO 11/17/24 [History Confirmed 04/08/25] vits no.130-ferrous fum 27 mg iron-folic acid 800 mcg tablet ( Vitamin) 1 tab PO QDAY pregancy #60 tabs 03/08/25 [Rx Confirmed 04/08/25] Intake Visit Data Collection New Patient or Established: Established Patient (seen at [facility] within 3 years) Reason for Visit:: OBC Seen by Clinical Staff ONLY (RN/MA): No Visual Associate Required: No Do You Feel Safe at Home: Yes Authorities Contacted: N/A PCP or OBGYN visit in last 3 months: Yes Date of Last PCP or OBGYN visit: 03/08/25 Hx Now: Yes Are you currently on any form of Control: No Pain Present Currently: No Pain Scale Used: Quinones-Prabhakar/Numerical Pain scale:: 0 Smoking Status Smoking Status: Never smoker Questionnaires Covid-19 Vaccine Questionnaire Has patient been vacinated for Covid-19 Have you been vacinated for Covid-19: Yes PHQ-9 PHQ-2 Over the last 2 weeks, how often have you been bothered by any of the following problems? 1. Little interest or pleasure in doing things: not at all 2. Feeling down, depressed, or hopeless: not at all Total score: 0 PHQ-9 3. Trouble falling or staying asleep, or sleeping too much: Not at all 4. Feeling tired or having little energy: Not at all 5. Poor appetite or overeating: Not at all 6. Feeling bad about yourself - or that you are a failure or have let yourself or your family down: Not at all 7. Trouble concentrating on things, such as reading the newspaper or watching television: Not at all 8. Moving or speaking so slowly that other people could have noticed? - Or the opposite - being so fidgety or restless that you have been moving around a lot more than usual: not at all 9. Thoughts that you would be better off or of hurting yourself in some way: Not at all Total score: 0 If you checked off any problems, how difficult have these problems made it for you to do your work, take care of things at home, or get along with other people?: not difficult at all Source: Developed by Drs. Tanmay Huffman, Alida Diaz, Rodrigo Luna and colleagues, with an educational tanvir from [employer] 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 Denies SAB complaints. Last period September 28, 2024. EDC July 05, 2025. Good dates. Denies chronic illness. Denies social habits. Denies surgeries. Patient is currently taking vitamins. Schedule ultrasound for viability and dating. OB panel today. Prescription for vitamins. Discussed diet and weight gain to be expected. Discussed first trimester discomforts. Return in 4 weeks for OB check and NIPT. Spinal muscular atrophy and cystic fibrosis screens were done today with panel 24-year-old 1 para 0 for initial OB. Denies SAB complaints. Last period September 28, 2024. EDC July 05, 2025. Good dates. Denies chronic illness. Denies social habits. Denies surgeries. Patient is currently taking vitamins. Schedule ultrasound for viability and dating. OB panel today. Prescription for vitamins. Discussed diet and weight gain to be expected. Discussed first trimester discomforts. Return in 4 weeks for OB check and NIPT. Spinal muscular atrophy and cystic fibrosis screens were done today with panel. UA: pro-,glucose-, NIT-,ZAC- 12/21/24 <del>?</del> 12w 0d 75.523 kg 111/70 Denies bleeding, leaking or cramps. denies 1st trimester discomfort. sono at [facility] 11/25: 7w5. +FHT. IUP 11w3, no fht with doppler patient sent to [facility] for sono to evaluate viability. will do NIPT NV if fetus viable. discuss SAB precaution 01/06/25 <del>?</del> 14w 2d 66.338 kg 110/67 absent unknown 14 145 active denies leaking, bleeding or cramps. reports light FM MFM appt 02/25/25, discuss sab precaution. hydrate. rtc 4 week OBC 02/08/25 <del>?</del> 19w 0d 77.678 kg 108/72 absent unknown 19 145 active Denies leaking. Denies bleeding. Denies cramps. Light movement positive patient has her anatomy scan coming up February 25. discuss sab precaution, AFP, mfm appt 02/25, discuss sab precaution. rtc 4 week obc 03/08/25 <del>?</del> 23w 0d 79.605 kg 110/70 absent unknown 23 155 active No OB complaints. Doing well. Reports movement. Denies contractions. Denies bleeding. Denies leaking Third trimester labs today. Discussed diet and weight. Increase fluids. Discussed precautions. Return in 4 weeks OB check Third trimester labs today. Discussed diet and weight. Increase fluids. Discussed precautions. Return in 4 weeks OB check. f/u mfm 05/0604/08/25 <del>?</del> 27w 3d 83.064 kg 127/79 absent unknown 27 155 active No OB complaints. Doing well. Denies leaking, denies bleeding, denies contractions. Reports good movement Discussed 1 hour and 3-hour labs. Continue with GDM diet. Walk 40 minutes a day. Maternal- medicine is May 06, 2025. Discussed labor precautions. Return in 4 weeks OB check ABY Calculator Estimated Delivery Date Method Current WG Current Estimate 07/05/25 LMP (Certain) 27w 3d Other Estimates 07/05/25 Ultrasound #1 27w 3d Notes Visit Date: 04/08/25 Last Updated by: Angelina Wren CNM 04/08: 1 hr gtt: 149, 3 hr gtt: wnl, , A1: 5.1, RPR:NR Visit Date: 03/08/25 Last Updated by: Angelina Wren CNM 25 yo . LMP 09/28/24. edc: 07/05/25. O+,abs-, rpr;;nr, rub imm, HBSAG-,HIV-, GC/CT-, NIPT:neg, sma/cf- Visit Date: 02/08/25 Last Updated by: Angelina Wren CNM 02/08: NIPT-/Male, carrier screen- Visit Date: 12/21/24 Last Updated by: Angelina Wren CNM 0+, abs-,rpr;;nr, rub imm, hbsag-,hiv-,hc-, GC/CT- neg carrier screens. 24 yo . LMP: 09/28/24. EDC 07/08/25. sono 11/25: 7w5; EDC by sono: 07/10/25 Office Procedures OB Clinic LOC & Office Proc's Nursing/Assessment Patient Status: Established Patient OB Clinic Nursing Assessment: Medication Reconciliation, Update PMH in EMR and Vital Signs OB Clinic Coordination of Care: Consent,records obtained, informed consent, Lab and Imaging orders, Results/Orders obtained and Staff clarify orders Special Needs: Heart tones Established Patient Charge Established Patient Point Assignment: 95 Established Patient Point Charge: EP Level 3 (80-115) Assessment & Plan Diagnosis / Problem List (1) Encounter for supervision of other normal , second trimester: Status: Acute (2) Gestational diabetes mellitus in childbirth, diet controlled: Status: Acute Plan Discussed third trimester labs. Discussed GDM diet. Walk 40 minutes a day. Watch watch sugary foods. Discussed labor precautions. [facility] follow-up in May 06. Return in 4 weeks OB check ,order breast pump Additional Plan Follow Up: 4 Weeks (obc)
[2025-04-08 10:14] VITALS: BP 127/79; PULSE 109; RESP 16; TEMP 36.1; O2SAT 98; BMI 28.7
== END 2025-04-08 11:03 | disposition home or self-care (01) ==
PROVIDERS: Supervising Provider Advanced Practice Midwife; Visit Provider Advanced Practice Midwife
DX: O09.892 Supervision of other high risk pregnancies, second trimester (principal); O24.410 Gestational diabetes mellitus in pregnancy, diet controlled; Z3A.27 27 weeks gestation of pregnancy
CPT/HCPCS: 99213; G0463

== ENCOUNTER 2025-05-11 08:57 | Outpatient (AMB) | payer BC, SELFPAY ==
[2025-05-11 09:01] VITALS: BP 115/74; PULSE 99; RESP 18; TEMP 36.6; O2SAT 98; BMI 29.4
--- NOTE | 2025-05-11 09:01 | AMB.OBVISIT ---
Vital Signs 05/11/25 09:01 Height 1.7 m Height Method Stated Weight 84.935 kg Weight Measurement Method Standing Scale BMI 29.4 BP 115/74 Blood Pressure Source Automatic Cuff Blood Pressure Location Left Upper Arm Position Sitting Respiration 18 Pulse 99 Pulse Source Monitor Temp 97.8 F Temp Source Oral Pulse Oximetry (%) 98 Oxygen Delivery Method Room Air Allergies/Home Meds Allergies & Medications Allergies NKA Allergy (Unknown, Uncoded 05/11/25 09:02) Medication Reconciliation vits no.126-ferrous fum 28 mg iron-folic acid 800 mcg tablet (Classic ) tab PO 11/17/24 [History Confirmed 05/11/25] vits no.130-ferrous fum 27 mg iron-folic acid 800 mcg tablet ( Vitamin) 1 tab PO QDAY pregancy #60 tabs 03/08/25 [Rx Confirmed 05/11/25] Intake Visit Data Collection New Patient or Established: Established Patient (seen at [facility] within 3 years) Reason for Visit:: CARE Seen by Clinical Staff ONLY (RN/MA): No Dean Of Students Required: No Do You Feel Safe at Home: Yes Authorities Contacted: N/A PCP or OBGYN visit in last 3 months: Yes Hx Now: Yes Are you currently on any form of Control: No Pain Present Currently: No Pain Scale Used: Quinones-Prabhakar/Numerical Pain scale:: 0 Smoking Status Smoking Status: Never smoker Immunizations Flu Vaccine in the Last 12 Months: No Flu Vaccine Exclusion Criteria: No Exclusion Criteria Questionnaires Covid-19 Vaccine Questionnaire Has patient been vacinated for Covid-19 Have you been vacinated for Covid-19: Yes PHQ-9 PHQ-2 Over the last 2 weeks, how often have you been bothered by any of the following problems? 1. Little interest or pleasure in doing things: not at all 2. Feeling down, depressed, or hopeless: not at all Total score: 0 PHQ-9 3. Trouble falling or staying asleep, or sleeping too much: Not at all 4. Feeling tired or having little energy: Not at all 5. Poor appetite or overeating: Not at all 6. Feeling bad about yourself - or that you are a failure or have let yourself or your family down: Not at all 7. Trouble concentrating on things, such as reading the newspaper or watching television: Not at all 8. Moving or speaking so slowly that other people could have noticed? - Or the opposite - being so fidgety or restless that you have been moving around a lot more than usual: not at all 9. Thoughts that you would be better off or of hurting yourself in some way: Not at all Total score: 0 Source: Developed by Drs. Tanmay Huffman, Alida Diaz, Rodrigo Luna and colleagues, with an educational tanvir from [employer]. 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 Denies SAB complaints. Last period September 28, 2024. EDC July 05, 2025. Good dates. Denies chronic illness. Denies social habits. Denies surgeries. Patient is currently taking vitamins. Schedule ultrasound for viability and dating. OB panel today. Prescription for vitamins. Discussed diet and weight gain to be expected. Discussed first trimester discomforts. Return in 4 weeks for OB check and NIPT. Spinal muscular atrophy and cystic fibrosis screens were done today with panel 24-year-old 1 para 0 for initial OB. Denies SAB complaints. Last period September 28, 2024. EDC July 05, 2025. Good dates. Denies chronic illness. Denies social habits. Denies surgeries. Patient is currently taking vitamins. Schedule ultrasound for viability and dating. OB panel today. Prescription for vitamins. Discussed diet and weight gain to be expected. Discussed first trimester discomforts. Return in 4 weeks for OB check and NIPT. Spinal muscular atrophy and cystic fibrosis screens were done today with panel. UA: pro-,glucose-, NIT-,ZAC- 12/21/24 <del>?</del> 12w 0d 75.523 kg 111/70 Denies bleeding, leaking or cramps. denies 1st trimester discomfort. sono at [facility] 11/25: 7w5. +FHT. IUP 11w3, no fht with doppler patient sent to [facility] for sono to evaluate viability. will do NIPT NV if fetus viable. discuss SAB precaution 01/06/25 <del>?</del> 14w 2d 66.338 kg 110/67 absent unknown 14 145 active denies leaking, bleeding or cramps. reports light FM MFM appt 02/25/25, discuss sab precaution. hydrate. rtc 4 week OBC 02/08/25 <del>?</del> 19w 0d 77.678 kg 108/72 absent unknown 19 145 active Denies leaking. Denies bleeding. Denies cramps. Light movement positive patient has her anatomy scan coming up February 25. discuss sab precaution, AFP, mfm appt 02/25, discuss sab precaution. rtc 4 week obc 03/08/25 <del>?</del> 23w 0d 79.605 kg 110/70 absent unknown 23 155 active No OB complaints. Doing well. Reports movement. Denies contractions. Denies bleeding. Denies leaking Third trimester labs today. Discussed diet and weight. Increase fluids. Discussed precautions. Return in 4 weeks OB check Third trimester labs today. Discussed diet and weight. Increase fluids. Discussed precautions. Return in 4 weeks OB check. f/u mfm 05/0604/08/25 <del>?</del> 27w 3d 83.064 kg 127/79 absent unknown 27 155 active No OB complaints. Doing well. Denies leaking, denies bleeding, denies contractions. Reports good movement Discussed 1 hour and 3-hour labs. Continue with GDM diet. Walk 40 minutes a day. Maternal- medicine is May 06, 2025. Discussed labor precautions. Return in 4 weeks OB check 05/11/25 <del>?</del> 32w 1d 84.935 kg 115/74 absent cephalic 31 155 active No OB complaints. Reports good movement. Denies leaking or bleeding. Denies contractions. Discussed 3-hour GTT results. I advised patient to start her GDM diet. To walk 40 minutes a day. Discussed labor precautions and kick count twice a day. Patient will have a follow-up ultrasound in 5 weeks for growth. Kick count twice a day. I discussed Tdap and patient will reviewed the information and get her Tdap at her next visit. ABY Calculator Estimated Delivery Date Method Current WG Current Estimate 07/05/25 LMP (Certain) 32w 1d Other Estimates 07/05/25 Ultrasound #1 32w 1d 07/05/25 Ultrasound #2 32w 1d 07/05/25 Manual 32w 1d final ABY: 07/05/25. EFW: 81% Notes Visit Date: 05/11/25 Last Updated by: Angelina Wren CNM 05/06: sono, EFW: 81%, Normal MADDIE and anatomy. 3 hr gtt: wnl Visit Date: 04/08/25 Last Updated by: Angelina Wren CNM 04/08: 1 hr gtt: 149, 3 hr gtt: wnl, , A1: 5.1, RPR:NR Visit Date: 03/08/25 Last Updated by: Angelina Wren CNM 25 yo . LMP 09/28/24. edc: 07/05/25. O+,abs-, rpr;;nr, rub imm, HBSAG-,HIV-, GC/CT-, NIPT:neg, sma/cf- Visit Date: 02/08/25 Last Updated by: Angelina Wren CNM 02/08: NIPT-/Male, carrier screen- Visit Date: 12/21/24 Last Updated by: Angelina Wren CNM 0+, abs-,rpr;;nr, rub imm, hbsag-,hiv-,hc-, GC/CT- neg carrier screens. 24 yo . LMP: 09/28/24. EDC 07/08/25. sono 5/7: 7w5; EDC by sono: 07/10/25 Office Procedures OBC Clinic LOC & Office Proc's Nursing/Assessment Patient Status: Established Patient OB Clinic Nursing Assessment: Medication Reconciliation, Update PMH in EMR and Vital Signs OB Clinic Coordination of Care: Complex Care and Chronic Disease 1-5, Consent,records obtained, informed consent, Education Simp Pt/Fam, 1 Ins Authorization, Lab and Imaging orders, Results/Orders obtained and Staff clarify orders Special Needs: Heart tones Established Patient Charge Established Patient Point Assignment: 150 Established Patient Point Charge: EP Level 4 (120-155) Assessment & Plan Diagnosis / Problem List (1) Encounter for supervision of high risk in third trimester, antepartum: Status: Acute Plan Discussed GDM diet. Walk 40 minutes a day. Kick count twice a day. We reviewed Tdap. Patient will like to have Tdap at her next visit. And keep MFM appointment in 4 weeks for growth Additional Plan Follow Up: 2 Weeks (obc)
== END 2025-05-11 09:34 | disposition home or self-care (01) ==
LOC: HODSOBC 08:57
PROVIDERS: Supervising Provider Advanced Practice Midwife; Visit Provider Advanced Practice Midwife
DX: O09.93 Supervision of high risk pregnancy, unspecified, third trimester (principal); Z3A.32 32 weeks gestation of pregnancy
CPT/HCPCS: 99214; G0463

== ENCOUNTER 2025-05-25 09:01 | Outpatient (AMB) | payer BC, SELFPAY ==
[2025-05-25 09:15] VITALS: BP 123/78; PULSE 88; RESP 18; TEMP 36.4; O2SAT 96; BMI 29.6
--- NOTE | 2025-05-25 09:15 | OBCLNT_ITS ---
Vital Signs 05/25/25 09:15 Height 1.7 m Height Method Stated Weight 85.729 kg Weight Measurement Method Standing Scale BMI 29.6 BP 123/78 Blood Pressure Source Automatic Cuff Blood Pressure Location Right Upper Arm Position Sitting Respiration 18 Pulse 88 Pulse Source Monitor Temp 97.5 F Temp Source Temporal Artery Scan Pulse Oximetry (%) 96 Oxygen Delivery Method Room Air Allergies/Home Meds Allergies & Medications Allergies NKA Allergy (Unknown, Uncoded 05/25/25 09:16) Medication Reconciliation vits no.126-ferrous fum 28 mg iron-folic acid 800 mcg tablet (Classic ) tab PO 11/17/24 [History Confirmed 05/25/25] vits no.130-ferrous fum 27 mg iron-folic acid 800 mcg tablet ( Vitamin) 1 tab PO QDAY pregancy #60 tabs 03/08/25 [Rx Confirmed 05/25/25] Intake Visit Data Collection New Patient or Established: Established Patient (seen at [facility] within 3 years) Reason for Visit:: OBC Seen by Clinical Staff ONLY (RN/MA): No Sod Farmer Required: No Do You Feel Safe at Home: Yes Authorities Contacted: N/A PCP or OBGYN visit in last 3 months: Yes Date of Last PCP or OBGYN visit: 05/11/25 Hx Now: Yes Are you currently on any form of Control: No Pain Present Currently: No Pain Scale Used: Quinones-Prabhakar/Numerical Pain scale:: 0 Smoking Status Smoking Status: Never smoker Immunizations Flu Vaccine in the Last 12 Months: No Flu Vaccine Exclusion Criteria: No Exclusion Criteria Questionnaires Covid-19 Vaccine Questionnaire Has patient been vacinated for Covid-19 Have you been vacinated for Covid-19: No PHQ-9 PHQ-2 Over the last 2 weeks, how often have you been bothered by any of the following problems? 1. Little interest or pleasure in doing things: not at all 2. Feeling down, depressed, or hopeless: not at all Total score: 0 PHQ-9 3. Trouble falling or staying asleep, or sleeping too much: Not at all 4. Feeling tired or having little energy: Not at all 5. Poor appetite or overeating: Not at all 6. Feeling bad about yourself - or that you are a failure or have let yourself or your family down: Not at all 7. Trouble concentrating on things, such as reading the newspaper or watching television: Not at all 8. Moving or speaking so slowly that other people could have noticed? - Or the opposite - being so fidgety or restless that you have been moving around a lot more than usual: not at all 9. Thoughts that you would be better off or of hurting yourself in some way: Not at all Total score: 0 If you checked off any problems, how difficult have these problems made it for you to do your work, take care of things at home, or get along with other people?: not difficult at all Source: Developed by Drs. Tanmay Huffman, Alida Diaz, Rodrigo Luna and colleagues, with an educational tanvir from [employer]. 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 Denies SAB complaints. Last period September 28, 2024. EDC July 05, 2025. Good dates. Denies chronic illness. Denies social habits. Denies surgeries. Patient is currently taking vitamins. Schedule ultrasound for viability and dating. OB panel today. Prescription for vitamins. Discussed diet and weight gain to be expected. Discussed first trimester discomforts. Return in 4 weeks for OB check and NIPT. Spinal muscular atrophy and cystic fibrosis screens were done today with panel 24-year-old 1 para 0 for initial OB. Denies SAB complaints. Last period September 28, 2024. EDC July 05, 2025. Good dates. Denies chronic illness. Denies social habits. Denies surgeries. Patient is currently taking vitamins. Schedule ultrasound for viability and dating. OB panel today. Prescription for vitamins. Discussed diet and weight gain to be expected. Discussed first trimester discomforts. Return in 4 weeks for OB check and NIPT. Spinal muscular atrophy and cystic fibrosis screens were done today with panel. UA: pro-,glucose-, NIT-,ZAC- 12/21/24 -?-?-?-?-?-?-?-?-?-?-?-?- 12w 0d 75.523 kg 111/70 Denies bleeding, leaking or cramps. denies 1st trimester discomfort. sono at [facility] 11/25: 7w5. +FHT. IUP 11w3, no fht with doppler patient sent to [facility] for sono to evaluate viability. will do NIPT NV if fetus viable. discuss SAB precaution 01/06/25 -?-?-?-?-?-?-?-?-?-?-?-?- 14w 2d 66.338 kg 110/67 absent unknown 14 145 active denies leaking, bleeding or cramps. reports light FM MFM appt 02/25/25, discuss sab precaution. hydrate. rtc 4 week OBC 02/08/25 -?-?-?-?-?-?-?-?-?-?-?-?- 19w 0d 77.678 kg 108/72 absent unknown 19 145 active Denies leaking. Denies bleeding. Denies cramps. Light movement positive patient has her anatomy scan coming up February 25. discuss sab precaution, AFP, mfm appt 02/25, discuss sab precaution. rtc 4 week obc 03/08/25 -?-?-?-?-?-?-?-?-?-?-?-?- 23w 0d 79.605 kg 110/70 absent unknown 23 155 active No OB complaints. Doing well. Reports movement. Denies contractions. Denies bleeding. Denies leaking Third trimester labs today. Discussed diet and weight. Increase fluids. Discussed precautions. Return in 4 weeks OB check Third trimester labs today. Discussed diet and weight. Increase fluids. Discussed precautions. Return in 4 weeks OB check. f/u mfm 05/0604/08/25 -?-?-?-?-?-?-?-?-?-?-?-?- 27w 3d 83.064 kg 127/79 absent unknown 27 155 active No OB complaints. Doing well. Denies leaking, denies bleeding, denies contractions. Reports good movement Discussed 1 hour and 3-hour labs. Continue with GDM diet. Walk 40 minutes a day. Maternal- medicine is May 06, 2025. Discussed labor precautions. Return in 4 weeks OB check 05/11/25 -?-?-?-?-?-?-?-?-?-?-?-?- 32w 1d 84.935 kg 115/74 absent cephalic 31 155 active No OB complaints. Reports good movement. Denies leaking or bleeding. Denies contractions. Discussed 3-hour GTT results. I advised patient to start her GDM diet. To walk 40 minutes a day. Discussed labor precautions and kick count twice a day. Patient will have a follow-up ultrasound in 5 weeks for growth. Kick count twice a day. I discussed Tdap and patient will reviewed the information and get her Tdap at her next visit. 05/25/25 -?-?-?-?-?-?-?-?-?-?-?-?- 34w 1d 85.729 kg 123/78 occasional cephalic 34 145 active Fetus active. Denies any contractions, leaking, bleeding. I was to get back on Tdap today. Discussed labor precautions. Kick count twice a day. GBS next visit. ABY Calculator Estimated Delivery Date Method Current WG Current Estimate 07/05/25 LMP (Certain) 34w 1d Other Estimates 07/05/25 Ultrasound #1 34w 1d 07/05/25 Ultrasound #2 34w 1d 07/05/25 Manual 34w 1d final ABY: 06/21 12/13. EFW: 81% Notes Visit Date: 05/11/25 Last Updated by: Angelina Wren CNM 05/06: sono, EFW: 81%, Normal MADDIE and anatomy. 3 hr gtt: wnl Visit Date: 04/08/25 Last Updated by: Angelina Wren CNM 04/08: 1 hr gtt: 149, 3 hr gtt: wnl, , A1: 5.1, RPR:NR Visit Date: 03/08/25 Last Updated by: Angelina Wren CNM 25 yo . LMP 09/28/24. edc: 07/05/25. O+,abs-, rpr;;nr, rub imm, HBSAG-,HIV-, GC/CT-, NIPT:neg, sma/cf- Visit Date: 02/08/25 Last Updated by: Angelina Wren CNM 02/08: NIPT-/Male, carrier screen- Visit Date: 12/21/24 Last Updated by: Angelina Wren CNM 0+, abs-,rpr;;nr, rub imm, hbsag-,hiv-,hc-, GC/CT- neg carrier screens. 24 yo . LMP: 09/28/24. EDC 07/08/25. sono 11/25: 7w5; EDC by sono: 07/10/25 Office Procedures OBC Clinic LOC & Office Proc's Nursing/Assessment Patient Status: Established Patient OB Clinic Nursing Assessment: Medication Reconciliation, Update PMH in EMR and Vital Signs OB Clinic Coordination of Care: Complex Care and Chronic Disease 1-5, Education Complex Pt/Fam, Consent,records obtained, informed consent and Staff clarify orders Special Needs: Heart tones Established Patient Charge Established Patient Point Assignment: 120 Established Patient Point Charge: EP Level 4 (120-155) Immunizations diphth,pertus(acell),tetanus 2.5 Lf unit-8 mcg-5 Lf/0.5mL IM syringe Performing Provider: Angelina Wren CNM Performing Location: [facility] Administered by: Beth Davies MA on 05/25/25 09:59 Dose Route Admin Location Dispensed Lot Number Expiration Date Pack age [facility] [employer] 0.5 mL IM Left Deltoid 0.5 mL [id number] 01/01/28 54094-396-61 [id number] [employer] VIS Given Date VIS Provided VIS Publication Date 05/25/25 Single Vaccine 24 Eligibility Eligibility Date Funding Source Public Non-VFC Assessment & Plan Diagnosis / Problem List (1) Encounter for supervision of high risk in third trimester, antepartum: Status: Acute Plan Discussed labor precautions. Kick count twice a day. Comfort measures for early labor. Increase fluids. Continue prenatals. Return in a week OB check,TDAP Additional Plan Follow Up: 1 Week (max)
== END 2025-05-25 09:32 | disposition home or self-care (01) ==
LOC: HODSOBC 09:01
PROVIDERS: Supervising Provider Advanced Practice Midwife; Visit Provider Advanced Practice Midwife
DX: O09.93 Supervision of high risk pregnancy, unspecified, third trimester (principal); Z3A.34 34 weeks gestation of pregnancy; Z23 Encounter for immunization
CPT/HCPCS: 90471; 90715; 99214; G0463

== ENCOUNTER 2025-06-11 10:23 | Outpatient (AMB) | payer BC, SELFPAY ==
[2025-06-11 10:31] VITALS: BP 123/68; PULSE 102; RESP 20; TEMP 36.6; O2SAT 96
--- NOTE | 2025-06-11 10:31 | AMB.OBPNC ---
Vital Signs 06/11/25 10:31 Height 1.7 m Height Method Stated Weight 86.863 kg Weight Measurement Method Standing Scale BMI 30.0 BP 123/68 Blood Pressure Source Automatic Cuff Blood Pressure Location Left Upper Arm Position Sitting Respiration 20 Pulse 102 H Pulse Source Monitor Temp 97.8 F Temp Source Oral Pulse Oximetry (%) 96 Oxygen Delivery Method Room Air Allergies/Home Meds Allergies & Medications Allergies NKA Allergy (Unknown, Uncoded 06/11/25 10:33) Medication Reconciliation vits no.126-ferrous fum 28 mg iron-folic acid 800 mcg tablet (Classic ) tab PO 11/17/24 [History Confirmed 06/11/25] vits no.130-ferrous fum 27 mg iron-folic acid 800 mcg tablet ( Vitamin) 1 tab PO QDAY pregancy #60 tabs 03/08/25 [Rx Confirmed 06/11/25] Immunizations Immunizations Flu Vaccine in the Last 12 Months: No Flu Vaccine Exclusion Criteria: Refused by Patient Care OB Visit Log OB Flowsheet Initial Weight: Not Recorded Date <del>?</del> EGA Weight BP Alb Glu CTX Pres Fundal ht FHR Mov Dilation Station Effacement Hx Notes Visit Note 11/17/24 <del>?</del> 7w 1d 76.771 kg 127/77 absent 7 24-year-old 1 para 0 for initial OB. Denies SAB complaints. Last period September 28, 2024. EDC July 05, 2025. Good dates. Denies chronic illness. Denies social habits. Denies surgeries. Patient is currently taking vitamins. Schedule ultrasound for viability and dating. OB panel today. Prescription for vitamins. Discussed diet and weight gain to be expected. Discussed first trimester discomforts. Return in 4 weeks for OB check and NIPT. Spinal muscular atrophy and cystic fibrosis screens were done today with panel 24-year-old 1 para 0 for initial OB. Denies SAB complaints. Last period September 28, 2024. EDC July 05, 2025. Good dates. Denies chronic illness. Denies social habits. Denies surgeries. Patient is currently taking vitamins. Schedule ultrasound for viability and dating. OB panel today. Prescription for vitamins. Discussed diet and weight gain to be expected. Discussed first trimester discomforts. Return in 4 weeks for OB check and NIPT. Spinal muscular atrophy and cystic fibrosis screens were done today with panel. UA: pro-,glucose-, NIT-,ZAC- 12/21/24 <del>?</del> 12w 0d 75.523 kg 111/70 Denies bleeding, leaking or cramps. denies 1st trimester discomfort. sono at [facility] 11/25: 7w5. +FHT. IUP 11w3, no fht with doppler patient sent to [facility] for sono to evaluate viability. will do NIPT NV if fetus viable. discuss SAB precaution 01/06/25 <del>?</del> 14w 2d 66.338 kg 110/67 absent unknown 14 145 active denies leaking, bleeding or cramps. reports light FM MFM appt 02/25/25, discuss sab precaution. hydrate. rtc 4 week OBC 02/08/25 <del>?</del> 19w 0d 77.678 kg 108/72 absent unknown 19 145 active Denies leaking. Denies bleeding. Denies cramps. Light movement positive patient has her anatomy scan coming up February 25. discuss sab precaution, AFP, mfm appt 02/25, discuss sab precaution. rtc 4 week obc 03/08/25 <del>?</del> 23w 0d 79.605 kg 110/70 absent unknown 23 155 active No OB complaints. Doing well. Reports movement. Denies contractions. Denies bleeding. Denies leaking Third trimester labs today. Discussed diet and weight. Increase fluids. Discussed precautions. Return in 4 weeks OB check Third trimester labs today. Discussed diet and weight. Increase fluids. Discussed precautions. Return in 4 weeks OB check. f/u mfm 05/0604/08/25 <del>?</del> 27w 3d 83.064 kg 127/79 absent unknown 27 155 active No OB complaints. Doing well. Denies leaking, denies bleeding, denies contractions. Reports good movement Discussed 1 hour and 3-hour labs. Continue with GDM diet. Walk 40 minutes a day. Maternal- medicine is May 06, 2025. Discussed labor precautions. Return in 4 weeks OB check 05/11/25 <del>?</del> 32w 1d 84.935 kg 115/74 absent cephalic 31 155 active No OB complaints. Reports good movement. Denies leaking or bleeding. Denies contractions. Discussed 3-hour GTT results. I advised patient to start her GDM diet. To walk 40 minutes a day. Discussed labor precautions and kick count twice a day. Patient will have a follow-up ultrasound in 5 weeks for growth. Kick count twice a day. I discussed Tdap and patient will reviewed the information and get her Tdap at her next visit. 05/25/25 <del>?</del> 34w 1d 85.729 kg 123/78 occasional cephalic 34 145 active Fetus active. Denies any contractions, leaking, bleeding. I was to get back on Tdap today. Discussed labor precautions. Kick count twice a day. GBS next visit. 06/11/25 <del>?</del> 36w 4d 86.863 kg 123/68 occasional cephalic 36 145 active Fetus active per patient. Denies leaking, bleeding, contractions GBS today. Discussed labor precautions. Kick count twice a day. Discussed ER precautions and danger signs and return in a week OB check ABY Calculator Estimated Delivery Date Method Current WG Current Estimate 07/05/25 LMP (Certain) 36w 4d Other Estimates 07/05/25 Ultrasound #1 36w 4d 07/05/25 Ultrasound #2 36w 4d 07/05/25 Manual 36w 4d final ABY: 07/05/25. EFW: 81% Notes Visit Date: 05/11/25 Last Updated by: Angelina Wren CNM 05/06: sono, EFW: 81%, Normal MADDIE and anatomy. 3 hr gtt: wnl Visit Date: 04/08/25 Last Updated by: Angelina Wren CNM 04/08: 1 hr gtt: 149, 3 hr gtt: wnl, , A1: 5.1, RPR:NR Visit Date: 03/08/25 Last Updated by: Angelina Wren CNM 25 yo . LMP 09/28/24. edc: 07/05/25. O+,abs-, rpr;;nr, rub imm, HBSAG-,HIV-, GC/CT-, NIPT:neg, sma/cf- Visit Date: 02/08/25 Last Updated by: Angelina Wren CNM 02/08: NIPT-/Male, carrier screen- Visit Date: 12/21/24 Last Updated by: Angelina Wren CNM 0+, abs-,rpr;;nr, rub imm, hbsag-,hiv-,hc-, GC/CT- neg carrier screens. 24 yo . LMP: 09/28/24. EDC 07/08/25. sono 11/25: 7w5; EDC by sono: 07/10/25 Office Procedures OBC Clinic LOC & Office Proc's Nursing/Assessment Patient Status: Established Patient OB Clinic Nursing Assessment: Medication Reconciliation, Update PMH in EMR and Vital Signs OB Clinic Coordination of Care: Complex Care and Chronic Disease 1-5, Consent,records obtained, informed consent, Education Simp Pt/Fam, 1 Ins Authorization, Lab and Imaging orders, Results/Orders obtained and Staff clarify orders Special Needs: Heart tones Miscellaneous Interventions: Culture Specimen Collection and Pelvic Culture Established Patient Charge Established Patient Point Assignment: 175 Established Patient Point Charge: EP Level 5 (160-above) Assessment & Plan Diagnosis / Problem List (1) Encounter for supervision of high risk in third trimester, antepartum: Status: Acute Plan GBS today. Discussed labor precautions. Kick count twice a day. Discussed ER precautions and danger signs to return week OB check Additional Plan Follow Up: 1 Week (obc)
== END 2025-06-11 10:45 | disposition home or self-care (01) ==
LOC: HODSOBC 10:23
PROVIDERS: Supervising Provider Advanced Practice Midwife; Visit Provider Advanced Practice Midwife
DX: O09.93 Supervision of high risk pregnancy, unspecified, third trimester (principal); Z36.85 Encounter for antenatal screening for Streptococcus B; Z3A.36 36 weeks gestation of pregnancy; Z28.21 Immunization not carried out because of patient refusal
CPT/HCPCS: 99215; G0463

== ENCOUNTER 2025-06-21 09:01 | Outpatient (AMB) | payer BC, SELFPAY ==
[2025-06-21 09:25] VITALS: BP 117/78; PULSE 88; RESP 16; TEMP 36.6; O2SAT 96; BMI 30.3
--- NOTE | 2025-06-21 09:25 | OBCLNT_ITS ---
Vital Signs 06/21/25 09:25 Height 1.7 m Height Method Stated Weight 87.657 kg Weight Measurement Method Standing Scale BMI 30.3 BP 117/78 Blood Pressure Source Automatic Cuff Blood Pressure Location Left Upper Arm Position Sitting Respiration 16 Pulse 88 Pulse Source Monitor Temp 97.8 F Temp Source Oral Pulse Oximetry (%) 96 Oxygen Delivery Method Room Air Allergies/Home Meds Allergies & Medications Allergies NKA Allergy (Unknown, Uncoded 06/21/25 09:26) Medication Reconciliation vits no.126-ferrous fum 28 mg iron-folic acid 800 mcg tablet (Classic ) tab PO 11/17/24 [History Confirmed 06/21/25] vits no.130-ferrous fum 27 mg iron-folic acid 800 mcg tablet ( Vitamin) 1 tab PO QDAY pregancy #60 tabs 03/08/25 [Rx Confirmed 06/21/25] Immunizations Immunizations Flu Vaccine in the Last 12 Months: No Flu Vaccine Exclusion Criteria: Refused by Patient Care OB Visit Log OB Flowsheet Initial Weight: Not Recorded Date -?-?-?-?-?-?-?-?-?-?-?-?- EGA Weight BP Alb Glu CTX Pres Fundal ht FHR Mov Dilation Station Effacement Hx Notes Visit Note 11/17/24 -?-?-?-?-?-?-?-?-?-?-?-?- 7w 1d 76.771 kg 127/77 absent 7 24-year-old 1 para 0 for initial OB. Denies SAB complaints. Last period September 28, 2024. EDC July 05, 2025. Good dates. Denies chronic illness. Denies social habits. Denies surgeries. Patient is currently taking vitamins. Schedule ultrasound for viability and dating. OB panel today. Prescription for vitamins. Discussed diet and weight gain to be expected. Discussed first trimester discomforts. Return in 4 weeks for OB check and NIPT. Spinal muscular atrophy and cystic fibrosis screens were done today with panel 24-year-old 1 para 0 for initial OB. Denies SAB complaints. Last period September 28, 2024. EDC July 05, 2025. Good dates. Denies chronic ill ness. Denies social habits. Denies surgeries. Patient is currently taking vitamins. Schedule ultrasound for viability and dating. OB panel today. Prescription for vitamins. Discussed diet and weight gain to be expected. Discussed first trimester discomforts. Return in 4 weeks for OB check and NIPT. Spinal muscular atrophy and cystic fibrosis screens were done today with panel. UA: pro-,glucose-, NIT-,ZAC- 12/21/24 -?-?-?-?-?-?-?-?-?-?-?-?- 12w 0d 75.523 kg 111/70 Denies bleeding, leaking or cramps. denies 1st trimester discomfort. sono at [facility] 11/25: 7w5. +FHT. IUP 11w3, no fht with doppler patient sent to [facility] for sono to evaluate viability. will do NIPT NV if fetus viable. discuss SAB precaution 01/06/25 -?-?-?-?-?-?-?-?-?-?-?-?- 14w 2d 66.338 kg 110/67 absent unknown 14 145 active denies leaking, bleeding or cramps. reports light FM MFM appt 02/25/25, discuss sab precaution. hydrate. rtc 4 week OBC 02/08/25 -?-?-?-?-?-?-?-?-?-?-?-?- 19w 0d 77.678 kg 108/72 absent unknown 19 145 active Denies leaking. Denies bleeding. Denies cramps. Light movement positive patient has her anatomy scan coming up February 25. discuss sab precaution, AFP, mfm appt 02/25, discuss sab precaution. rtc 4 week obc 03/08/25 -?-?-?-?-?-?-?-?-?-?-?-?- 23w 0d 79.605 kg 110/70 absent unknown 23 155 active No OB complaints. Doing well. Reports movement. Denies contractions. Denies bleeding. Denies leaking Third trimester labs today. Discussed diet and weight. Increase fluids. Discussed precautions. Return in 4 weeks OB check Third trimester labs today. Discussed diet and weight. Increase fluids. Discussed precautions. Return in 4 weeks OB check. f/u mfm 05/0604/08/25 -?-?-?-?-?-?-?-?-?-?-?-?- 27w 3d 83.064 kg 127/79 absent unknown 27 155 active No OB complaints. Doing well. Denies leaking, denies bleeding, denies contractions. Reports good movement Discussed 1 hour and 3-hour labs. Continue with GDM diet. Walk 40 minutes a day. Maternal- medicine is May 06, 2025. Discussed labor precautions. Return in 4 weeks OB check 05/11/25 -?-?-?-?-?-?-?-?-?-?-?-?- 32w 1d 84.935 kg 115/74 absent cephalic 31 155 active No OB complaints. Reports good movement. Denies leaking or bleeding. Denies contractions. Discussed 3-hour GTT results. I advised patient to start her GDM diet. To walk 40 minutes a day. Discussed labor precautions and kick count twice a day. Patient will have a follow-up ultrasound in 5 weeks for growth. Kick count twice a day. I discussed Tdap and patient will reviewed the information and get her Tdap at her next visit. 05/25/25 -?-?-?-?-?-?-?-?-?-?-?-?- 34w 1d 85.729 kg 123/78 occasional cephalic 34 145 active Fetus active. Denies any contractions, leaking, bleeding. I was to get back on Tdap today. Discussed labor precautions. Kick count twice a day. GBS next visit. 06/11/25 -?-?-?-?-?-?-?-?-?-?-?-?- 36w 4d 86.863 kg 123/68 occasional cephalic 36 145 active Fetus active per patient. Denies leaking, bleeding, contractions GBS today. Discussed labor precautions. Kick count twice a day. Discussed ER precautions and danger signs and return in a week OB check 06/21/25 -?-?-?-?-?-?-?-?-?-?-?-?- 38w 0d 87.657 kg 117/78 occasional cephalic 38 156 active Fetus active per patient. Occasional contraction. Denies leaking or bleeding. Reports good movement Discussed GBS an d ultrasound. Discussed labor precautions. Kick count twice a day. Patient refused flu vaccine return in a week OB check ABY Calculator Estimated Delivery Date Method Current WG Current Estimate 07/05/25 LMP (Certain) 38w 0d Other Estimates 07/05/25 Ultrasound #1 38w 0d 07/05/25 Ultrasound #2 38w 0d 07/05/25 Manual 38w 0d final ABY: 06/21 12/13. EFW: 81% Notes Visit Date: 06/21/25 Last Updated by: Angelina Wren CNM GBS-, sono 06/09: 36w2, efw 53% Visit Date: 05/11/25 Last Updated by: Angelina Wren CNM 05/06: sono, EFW: 81%, Normal MADDIE and anatomy. 3 hr gtt: wnl Visit Date: 04/08/25 Last Updated by: Angelina Wren CNM 04/08: 1 hr gtt: 149, 3 hr gtt: wnl, , A1: 5.1, RPR:NR Visit Date: 03/08/25 Last Updated by: Angelina Wren CNM 25 yo . LMP 09/28/24. edc: 07/05/25. O+,abs-, rpr;;nr, rub imm, HBSAG-,HIV-, GC/CT-, NIPT:neg, sma/cf- Visit Date: 02/08/25 Last Updated by: Angelina Wren CNM 02/08: NIPT-/Male, carrier screen- Visit Date: 12/21/24 Last Updated by: Angelina Wren CNM 0+, abs-,rpr;;nr, rub imm, hbsag-,hiv-,hc-, GC/CT- neg carrier screens. 24 yo . LMP: 09/28/24. EDC 07/08/25. sono 11/25: 7w5; EDC by sono: 07/10/25 Office Procedures OBC Clinic LOC & Office Proc's Nursing/Assessment Patient Status: Established Patient OB Clinic Nursing Assessment: Medication Reconciliation, Update PMH in EMR and Vital Signs OB Clinic Coordination of Care: Complex Care and Chronic Disease 1-5, Consent,records obtained, informed consent, Education Simp Pt/Fam, 1 Ins A uthorization, Lab and Imaging orders, Results/Orders obtained and Staff clarify orders Special Needs: Heart tones Established Patient Charge Established Patient Point Assignment: 150 Established Patient Point Charge: EP Level 4 (120-155) Assessment & Plan Diagnosis / Problem List (1) Encounter for supervision of high risk in third trimester, antepartum: Status: Acute Plan Labor precautions today. Kick count twice a day. Discussed GBS results and sono. Return a week OB to Additional Plan Follow Up: 1 Week (obc)
== END 2025-06-21 09:30 | disposition home or self-care (01) ==
LOC: HODSOBC 09:01
PROVIDERS: Supervising Provider Advanced Practice Midwife; Visit Provider Advanced Practice Midwife
DX: O09.93 Supervision of high risk pregnancy, unspecified, third trimester (principal); Z3A.38 38 weeks gestation of pregnancy; Z28.21 Immunization not carried out because of patient refusal
CPT/HCPCS: 99214; G0463

== ENCOUNTER 2025-07-01 08:28 | Outpatient (AMB) | payer BC, SELFPAY ==
--- NOTE | 2025-07-01 08:47 | OBCLNT_ITS ---
Vital Signs 07/01/25 08:48 Height 1.7 m Height Method Stated Weight 88.621 kg Weight Measurement Method Standing Scale BMI 30.7 BP 116/76 Blood Pressure Source Automatic Cuff Blood Pressure Location Left Upper Arm Position Sitting Respiration 18 Pulse 92 Pulse Source Monitor Temp 97.6 F Temp Source Oral Pulse Oximetry (%) 97 Oxygen Delivery Method Room Air Allergies/Home Meds Allergies & Medications Allergies NKA Allergy (Unknown, Uncoded 07/01/25 08:49) Medication Reconciliation vits no.126-ferrous fum 28 mg iron-folic acid 800 mcg tablet (Classic ) tab PO 11/17/24 [History Confirmed 07/01/25] vits no.130-ferrous fum 27 mg iron-folic acid 800 mcg tablet ( Vitamin) 1 tab PO QDAY pregancy #60 tabs 03/08/25 [Rx Confirmed 07/01/25] Immunizations Immunizations Flu Vaccine in the Last 12 Months: Yes Flu Vaccine Exclusion Criteria: Already Received Care OB Visit Log OB Flowsheet Initial Weight: Not Recorded Date -?-?-?-?-?-?-?-?-?-?-?-?- EGA Weight BP Alb Glu CTX Pres Fundal ht FHR Mov Dilation Station Effacement Hx Notes Visit Note 11/17/24 -?-?-?-?-?-?-?-?-?-?-?-?- 7w 1d 76.771 kg 127/77 absent 7 24-year-old 1 para 0 for initial OB. Denies SAB complaints. Last period September 28, 2024. EDC July 05, 2025. Good dates. Denies chronic illness. Denies social habits. Denies surgeries. Patient is currently taking vitamins. Schedule ultrasound for viability and dating. OB panel today. Prescription for vitamins. Discussed diet and weight gain to be expected. Discussed first trimester discomforts. Return in 4 weeks for OB check and NIPT. Spinal muscular atrophy and cystic fibrosis screens were done today with panel 24-year-old 1 para 0 for initial OB. Denies SAB complaints. Last period September 28, 2024. EDC July 05, 2025. Good dates. Denies chronic illn ess. Denies social habits. Denies surgeries. Patient is currently taking vitamins. Schedule ultrasound for viability and dating. OB panel today. Prescription for vitamins. Discussed diet and weight gain to be expected. Discussed first trimester discomforts. Return in 4 weeks for OB check and NIPT. Spinal muscular atrophy and cystic fibrosis screens were done today with panel. UA: pro-,glucose-, NIT-,ZAC- 12/21/24 -?-?-?-?-?-?-?-?-?-?-?-?- 12w 0d 75.523 kg 111/70 Denies bleeding, leaking or cramps. denies 1st trimester discomfort. sono at [facility] 11/25: 7w5. +FHT. IUP 11w3, no fht with doppler patient sent to [facility] for sono to evaluate viability. will do NIPT NV if fetus viable. discuss SAB precaution 01/06/25 -?-?-?-?-?-?-?-?-?-?-?-?- 14w 2d 66.338 kg 110/67 absent unknown 14 145 active denies leaking, bleeding or cramps. reports light FM MFM appt 02/25/25, discuss sab precaution. hydrate. rtc 4 week OBC 02/08/25 -?-?-?-?-?-?-?-?-?-?-?-?- 19w 0d 77.678 kg 108/72 absent unknown 19 145 active Denies leaking. Denies bleeding. Denies cramps. Light movement positive patient has her anatomy scan coming up February 25. discuss sab precaution, AFP, mfm appt 02/25, discuss sab precaution. rtc 4 week obc 03/08/25 -?-?-?-?-?-?-?-?-?-?-?-?- 23w 0d 79.605 kg 110/70 absent unknown 23 155 active No OB complaints. Doing well. Reports movement. Denies contractions. Denies bleeding. Denies leaking Third trimester labs today. Discussed diet and weight. Increase fluids. Discussed precautions. Return in 4 weeks OB check Third trimester labs today. Discussed diet and weight. Increase fluids. Discussed precautions. Return in 4 weeks OB check. f/u mfm 05/0604/08/25 -?-?-?-?-?-?-?-?-?-?-?-?- 27w 3d 83.064 kg 127/79 absent unknown 27 155 active No OB complaints. Doing well. Denies leaking, denies bleeding, denies contractions. Reports good movement Discussed 1 hour and 3-hour labs. Continue with GDM diet. Walk 40 minutes a day. Maternal- medicine is May 06, 2025. Discussed labor precautions. Return in 4 weeks OB check 05/11/25 -?-?-?-?-?-?-?-?-?-?-?-?- 32w 1d 84.935 kg 115/74 absent cephalic 31 155 active No OB complaints. Reports good movement. Denies leaking or bleeding. Denies contractions. Discussed 3-hour GTT results. I advised patient to start her GDM diet. To walk 40 minutes a day. Discussed labor precautions and kick count twice a day. Patient will have a follow-up ultrasound in 5 weeks for growth. Kick count twice a day. I discussed Tdap and patient will reviewed the information and get her Tdap at her next visit. 05/25/25 -?-?-?-?-?-?-?-?-?-?-?-?- 34w 1d 85.729 kg 123/78 occasional cephalic 34 145 active Fetus active. Denies any contractions, leaking, bleeding. I was to get back on Tdap today. Discussed labor precautions. Kick count twice a day. GBS next visit. 06/11/25 -?-?-?-?-?-?-?-?-?-?-?-?- 36w 4d 86.863 kg 123/68 occasional cephalic 36 145 active Fetus active per patient. Denies leaking, bleeding, contractions GBS today. Discussed labor precautions. Kick count twice a day. Discussed ER precautions and danger signs and return in a week OB check 06/21/25 -?-?-?-?-?-?-?-?-?-?-?-?- 38w 0d 87.657 kg 117/78 occasional cephalic 38 156 active Fetus active per patient. Occasional contraction. Denies leaking or bleeding. Reports good movement Discussed GBS an d ultrasound. Discussed labor precautions. Kick count twice a day. Patient refused flu vaccine return in a week OB check 07/01/25 -?-?-?-?-?-?-?-?-?-?-?-?- 39w 3d 88.621 kg 116/76 occasional cephalic 38 146 active 2.5 -1 80 Reports good movement. Denies leaking, bleeding. Increased contractions and pressure. Discussed labor precautions. Kick count twice a day. Discussed ER precautions. I discussed and offered induction with patient she like to wait to see if the baby comes by her due date. Return in a week OB check ABY Calculator Estimated Delivery Date Method Current WG Current Estimate 07/05/25 LMP (Certain) 39w 3d Other Estimates 07/05/25 Ultrasound #1 39w 3d 07/05/25 Ultrasound #2 39w 3d 07/05/25 Manual 39w 3d final ABY: 06/21 12/13. EFW: 81% Notes Visit Date: 06/21/25 Last Updated by: Angelina Wren CNM GBS-, sono 06/09: 36w2, efw 53% Visit Date: 05/11/25 Last Updated by: Angelina Wren CNM 05/06: sono, EFW: 81%, Normal MDADIE and anatomy. 3 hr gtt: wnl Visit Date: 04/08/25 Last Updated by: Angelina Wren CNM 04/08: 1 hr gtt: 149, 3 hr gtt: wnl, , A1: 5.1, RPR:NR Visit Date: 03/08/25 Last Updated by: Angelina Wren CNM 25 yo . LMP 09/28/24. edc: 07/05/25. O+,abs-, rpr;;nr, rub imm, HBSAG-,HIV-, GC/CT-, NIPT:neg, sma/cf- Visit Date: 02/08/25 Last Updated by: Angelina Wren CNM 02/08: NIPT-/Male, carrier screen- Visit Date: 12/21/24 Last Updated by: Angelina Wren CNM 0+, abs-,rpr;;nr, rub imm, hbsag-,hiv-,hc-, GC/CT- neg carrier screens. 24 yo . LMP: 09/28/24. EDC 07/08/25. sono 59: 7w5; EDC by sono: 07/10/25 Office Procedures OBC Clinic LOC & Office Proc's Nursing/Assessment Patient Status: Established Patient OB Clinic Nursing Assessment: Medication Reconciliation, Update PMH in EMR and Vital Signs OB Clinic Coordination of Care: Complex Care and Chronic Disease 1-5, Co nsent,records obtained, informed consent, Education Simp Pt/Fam, 1 Ins Authorization, Lab and Imaging orders, Results/Orders obtained and Staff clarify orders Special Needs: Heart tones Established Patient Charge Established Patient Point Assignment: 150 Established Patient Point Charge: EP Level 4 (120-155) Assessment & Plan Diagnosis / Problem List (1) Encounter for supervision of high risk in third trimester, antepartum: Status: Acute Plan Discussed labor precautions. Kick count twice a day. Discussed ER precautions and danger signs symptoms. Increase fluids. Return in week OB to Additional Plan Follow Up: 1 Week (obc)
[2025-07-01 08:48] VITALS: BP 116/76; PULSE 92; RESP 18; TEMP 36.4; O2SAT 97; BMI 30.7
== END 2025-07-01 09:39 | disposition home or self-care (01) ==
LOC: HODSOBC 08:28
PROVIDERS: Supervising Provider Advanced Practice Midwife; Visit Provider Advanced Practice Midwife
DX: O09.93 Supervision of high risk pregnancy, unspecified, third trimester (principal); Z3A.39 39 weeks gestation of pregnancy
CPT/HCPCS: 99214; G0463

== ENCOUNTER 2025-07-03 16:11 | Inpatient (IN) | payer BC, SELFPAY ==
[2025-07-03] VITALS (132 sets, daily range): BP systolic 98–131; BP diastolic 53–79; PULSE 72–125; RESP 16–96; TEMP 36.6–36.8; O2SAT 62–100; BMI 30.4
[2025-07-03 17:06] LABS: Collection Type, Urine Clean Catch
[2025-07-03 17:17] LABS: Bilirubin,Urine Negative (Negative); Blood,Urine 3+ (Negative); Clarity,Urine Turbid (Clear/Hazy); Color,Urine Yellow (Lt Yel-Yel); Glucose, Urine 1+ (Negative); Ketones,Urine 2+ (Negative); Leukocyte Esterase,Urine Positive (Negative); Nitrite,Urine Negative (Negative); PH,Urine 6.0 (5.0-7.0); Protein,Urine Trace (Neg - Trace); RBC,Urine 93 /hpf (0-3); Specific Gravity,Urine 1.025 (1.001-1.035); Squamous Epithelial Cell,Urine 23 /hpf (0-5); Urobilinogen,Urine Negative mg/dL (0.0-1.0); WBC,Urine 111 /hpf (0-5)
[2025-07-03 17:19] LABS: Basophils # (Auto) 0.0 Thou/mm3 (0.0-0.2); Basophils % (Auto) 0 % (0-2.5); Eosinophils # (Auto) 0.1 Thou/mm3 (0.0-0.5); Eosinophils % (Auto) 0 % (0-10); Hematocrit 38.2 % (36.0-46.0); Hemoglobin 13.2 g/dL (12.0-16.0); Immature Granulocytes Auto 0.14 Thou/mm3 (0.00-0.00); Lymphocytes # (Auto) 0.9 Thou/mm3 (1.0-4.8); Lymphocytes % (Auto) 7 % (10-50); Mean Corpuscular HGB Conc 34.6 g/dl (31.0-37.0); Mean Corpuscular Hemoglobin 31.3 pg (25.0-35.0); Mean Corpuscular Volume 91 fL (80-100); Monocytes # (Auto) 0.7 Thou/mm3 (0.0-0.8); Monocytes % (Auto) 6 % (0-12); Neutrophils # (Auto) 11.0 Thou/mm3 (1.8-7.7); Neutrophils % (Auto) 86 % (37-80); Nucleated Red Blood Cell # 0.00 Thou/mm3 (0.00-0.00); Nucleated Red Blood Cell % 0 /100 WBC (0); Platelet Count 275 Thou/mm3 (140-440); RDW Standard Deviation 42.9 fL (36.4-46.3); Red Blood Count 4.22 Miln/mm3 (4.00-5.20); White Blood Count 12.8 Thou/mm3 (3.6-11.0)
[2025-07-03 17:19] LABS: Creatinine,Random Urine 150 mg/dL (30-125); Protein Total, Random Urine 51 mg/dL (1-14)
[2025-07-03 17:37] LABS: Alanine Aminotransferase 13 U/L (10-49); Albumin, Serum 4.5 gm/dL (3.5-5.0); Albumin/Globulin Ratio 1.8 (1.2-2.2); Alkaline Phosphatase 271 U/L (46-116); Anion Gap 12 (7-16); Aspartate Amino Transferase 20 U/L (0-34); BUN/Creatinine Ratio 15 Ratio (12-20); Bilirubin,Total 0.7 mg/dL (0.3-1.2); Blood Urea Nitrogen 9 mg/dL (9-23); Calcium 9.7 mg/dL (8.3-10.6); Calcium (Corrected) 9.7 mg/dL (8.5-10.1); Carbon Dioxide 19.6 mMol/L (20.0-31.0); Chloride 105 mMol/L (98-107); Creatinine (Component) 0.6 mg/dL (0.6-1.3); Estimated Creatinine Clearance 166.2 mL/min (>60); Globulin 2.5 gm/dL (2.3-3.5); Glucose 110 mg/dL (74-106); Osmolality,Calculated 273 (275-295); Potassium 3.7 mMol/L (3.4-5.1); Sodium 137 mMol/L (136-145); Total Protein 7.0 gm/dL (5.7-8.2); Uric Acid 4.3 mg/dL (3.1-7.8); eGFR > 60 See Note
[2025-07-03] MEDS: fentaNYL CIT INJ 50 mCg/ML AMP 2ML 100 MCG IVP ×2 (18:08→19:57)
[2025-07-03 18:14] LABS: INR 0.9 (0.9-1.3); Partial Thromboplastin Time 25.8 Seconds (22.0-36.0); Prothrombin Time 9.7 Seconds (9.0-12.2)
[2025-07-03 18:17] LABS: Fibrinogen 609 mg/dL (175-375)
--- NOTE | 2025-07-03 21:01 | PD.LDHP ---
Documentation for date of: 07/03/25 OB Labor/Induct. HPI History of Present Illness Chief complaint: labor : 1 Para: 0 Term pregnancies: 0 pregnancies: 0 Living children: 0 History of Abortions: Spontaneous and Elective: 0 History of Vaginal deliveries: 0 History of sections: No History of : No Date of last menstrual period: 09/28/24 ABY: 07/05/25 Gestational Age (weeks): 39 Gestational Age (days): 5 Gestational age based on last menstrual period: 39 History of present illness: 25-year-old 1 para 0 admitted to labor and delivery with contractions since 2 in the afternoon. She has been followed at 6 [facility] OB clinic. Her first visit 7 weeks. Last. September 28, 2024. Estimated due date July 05, 2025. Reports regular contractions at 2 PM. Denies leaking or bleeding. She is O+, antibody screen negative, RPR nonreactive, rubella, hepatitis B negative, hep C negative, HIV negative, GC and Chlamydia were negative. Her GBS negative. She had a normal 1 hour 3-hour normal. NIPT and carrier screens all normal History of Present Dating criteria: LMP confirmed by 1st trimester US Adequate Care: Yes Ultrasounds: normal 1st trimester US and normal mid trimester US Obstetrical complications: none Medical complications: none Labs Labs: Positive: Rubella Titre, Negative: RPR, Hepatitis B, HIV, Chlamydia, Gonorrhea and Group Beta Strep and Unknown: Herpes Type 1, Herpes Type 2 and Covid-19 Review of Systems Review of Systems Systems Reviewed: All systems reviewed, normal except as documented Past Medical History Surgical History SURGICAL: Negative Section Meds Home Medications and Allergies Home Medications ?Medication ?Instructions ?Recorded ?Confirmed ?Type vits no.126-ferrous fum tab PO 11/17/24 07/01/25 History 28 mg iron-folic acid 800 mcg tablet (Classic ) Allergies Allergy/AdvReac Type Severity Reaction Status Date / Time No Known Allergies Allergy Verified 07/03/25 17:08 OB Exam Physical Exam Vital signs: Temp Pulse Resp BP Pulse Ox O2 Del Method 97.9 F 97 16 126/73 95 Room Air 07/03/25 20:04 07/03/25 20:51 07/03/25 20:04 07/03/25 20:51 07/03/25 20:59 07/03/25 17:00 Narrative: Alert and oriented. Normal heart rate and rhythm. Lungs clear no wheezes. Gravid abdomen. Gynecoid pelvis. Vaginal exam on admission was 60%, 4-5, -2. Vertex. heart rate category 1 with accelerations and moderate variability. Bag aragon intact and she had contractions about every 5 to 6 minutes. efw: 7-15 Detailed Labor and Delivery Exam Dilation (cm): 4-5 Effacement (%): 70 station: -2 Consistency: medium Presentation: Vertex Cervical ripeness score: 8 Membranes: intact Baseline heart rate: 135 monitor accelerations: 15x15 monitor decelerations: None buttermaker continuous churn variability: Moderate (11-25) Contraction frequency (min): 4-5 Contraction duration (sec): 40 Tachysystole: No Contraction intensity: Moderate OB Results Labs 07/03/25 16:25 07/03/25 16:25 Labs: Short CBC 07/03/25 Range/Units 16:25 WBC 12.8 H (3.6-11.0) Thou/mm3 Hgb 13.2 (12.0-16.0) g/dL Hct 38.2 (36.0-46.0) % Plt Count 275 (140-440) Thou/mm3 BMP 07/03/25 16:25 Sodium 137 Potassium 3.7 Chloride 105 Carbon Dioxide 19.6 L BUN 9 Creatinine 0.6 Glucose 110 H Calcium 9.7 Liver Function 07/03/25 Range/Units 16:25 Total Bilirubin 0.7 (0.3-1.2) mg/dL AST 20 (0-34) U/L ALT 13 (10-49) U/L Alkaline Phosphatase 271 H (46-116) U/L Albumin 4.5 (3.5-5.0) gm/dL Urine 07/03/25 Range/Units 16:15 Urine Color Yellow (Lt Yel-Yel) Urine Clarity Turbid A (Clear/Hazy) Urine pH 6.0 (5.0-7.0) Ur Specific [place] 1.025 (1.001-1.035) Urine Protein Trace (Neg - Trace) Urine Glucose (UA) 1+ A (Negative) OB Assessment & Plan Assessment and Plan (1) Normal labor and delivery: Status: Acute Additional Plan Induction method: none Plan: anticipate NVD and consult MD gonzalez
[2025-07-04] VITALS (61 sets, daily range): BP systolic 95–127; BP diastolic 53–75; PULSE 82–142; RESP 16–20; TEMP 36.7–37; O2SAT 90–100
[2025-07-04] MEDS: OXYTOCIN in NS 30 units 30 UNIT/500 ML BAG IV (00:10)
[2025-07-04] MEDS: MINERAL OIL 30 ML UDC TOP (01:57)
[2025-07-04] MEDS: OXYTOCIN INJ 10 UNIT/ML VIAL IM (02:36)
[2025-07-04] MEDS: TRANEXAMIC ACID 1,000 MG IVPB 1,000 MG/100 ML BAG 200 MG IV (02:42)
--- NOTE | 2025-07-04 04:10 | OBDSUM_ITS ---
Data (Pagan) Data Hx Section: No : 1 Term: 0 : 0 Livin Abortions: Spontaneous & Theraputic: 0 Delivery Data (Pagan) Labor Data Initiation of labor: Spontaneous Induction/Augmentation Agent: Pitocin ROM date: 07/03/25 ROM time: 19:40 Amniotic membrane rupture type: Spontaneous Amniotic fluid description: Clear Delivery Data EDC: 07/05/25 EDC calculated by:: LMP/early US confirmation Date of arrival to unit: 07/03/25 Time of arrival to unit: 16:11 Onset of labor date: 07/03/25 Onset of labor time: 14:00 Complete dilation date: 07/04/25 Complete dilation time: 01:34 Tiline delivery date: 07/04/25 Tiline delivery time: 02:26 Gestational age (weeks): 39 Gestational age (days): 5 Placenta delivery date: 07/04/25 Placenta delivery time: 02:45 Stage 1 total time: Labor - Stage 1 Duration 11 hours and 34 minutes Delivered by: Elmer Wren Delivery nurse: Chandni Correa nurse: Wanda LACY Narrative Writer at delivery: No Support person(s) at delivery: KIRAN, and MARSHALL Other staff at delivery: Eliana LACYparty demonstrator Method Delivery method: Normal Vaginal Delivery Presentation: Vertex position: OA Anesthesia Type Anesthesia Type: Epidural Delivery Room Medications Delivery room medications given: fentanyl Delivery room medications: Pitocin 10 u IM, Pitocin 20 u IV, Cytotec 800 IL and other (TXA) Placenta Placenta delivery description: Spontaneous (inspected,intact) Cord blood sent to lab: Yes cord blood collection: Cord Blood Type Episiotomy Episiotomy description: Midline Perineal repair Sutures used for repair: 3.0 Vicryl (2 00) EBL Estimated blood loss (ml): 400 Umbilical Cord cord description: 3 Vessels and Nuchal Cord (x1) Data (Pagan) Data order: 1 's gender: Male Identification band number: [id number] 1 minute: 9 5 minutes: 9
[2025-07-04] MEDS: IBUPROFEN TAB 400 MG TABLET 800 MG PO ×2 (05:22→08:14)
[2025-07-04 06:52] LABS: Syphilis Nonreactive (Nonreactive)
[2025-07-04] MEDS: DOCUSATE SOD 100 MG CAPSULE PO ×2 (08:12→20:35)
[2025-07-04] MEDS: Hydrocortisone Cr 1% 30 GM TUBE TOP (11:17)
[2025-07-04] MEDS: BENZO/LANO/ALOE (Dermoplast) 60 GM CAN 1 SPRAY TOP (11:18)
[2025-07-04 14:14] LABS: Basophils # (Auto) 0.0 Thou/mm3 (0.0-0.2); Basophils % (Auto) 0 % (0-2.5); Eosinophils # (Auto) 0.1 Thou/mm3 (0.0-0.5); Eosinophils % (Auto) 1 % (0-10); Hematocrit 31.4 % (36.0-46.0); Hemoglobin 10.6 g/dL (12.0-16.0); Immature Granulocytes Auto 0.12 Thou/mm3 (0.00-0.00); Lymphocytes # (Auto) 1.3 Thou/mm3 (1.0-4.8); Lymphocytes % (Auto) 9 % (10-50); Mean Corpuscular HGB Conc 33.8 g/dl (31.0-37.0); Mean Corpuscular Hemoglobin 31.3 pg (25.0-35.0); Mean Corpuscular Volume 93 fL (80-100); Monocytes # (Auto) 1.4 Thou/mm3 (0.0-0.8); Monocytes % (Auto) 10 % (0-12); Neutrophils # (Auto) 10.9 Thou/mm3 (1.8-7.7); Neutrophils % (Auto) 79 % (37-80); Nucleated Red Blood Cell # 0.00 Thou/mm3 (0.00-0.00); Nucleated Red Blood Cell % 0 /100 WBC (0); Platelet Count 219 Thou/mm3 (140-440); RDW Standard Deviation 45.0 fL (36.4-46.3); Red Blood Count 3.39 Miln/mm3 (4.00-5.20); White Blood Count 13.8 Thou/mm3 (3.6-11.0)
[2025-07-04] MEDS: ACETAMINOPHEN 325 MG TABLET 650 MG PO (15:20)
--- NOTE | 2025-07-04 19:14 | PD.LDPPPRG ---
Subjective Subjective Interval history: Patient complains of increasing perineal pain rectum. Tylenol and ibuprofen have not brought pain down from 8 out of 10. Sometimes she describes pain as sharp and it comes and goes. Otherwise pain seems to be in the perineal area all the time. Exam Vital Signs Temp Pulse Resp BP Pulse Ox O2 Del Method 98.1 F 90 18 107/67 98 Room Air 07/04/25 15:00 07/04/25 16:30 07/04/25 15:00 07/04/25 15:00 07/04/25 15:00 07/04/25 15:00 Narrative Exam Abdomen soft nontender. Uterus well involuted. 2 below the umbilicus. Vagina is pink. No bruising noted. No lacerations except for repair of the perineal floor. There are no hematomas palpated in either both vaginal cristina or the rest of the vagina. Labia are soft and nontender no bruising noted minimal swelling. Perineal body is in tact and healing. Pinpoint pain right above the rectum with pressure. I did a bimanual exam with palpation of the rectum and the vaginal floor at the same time and there is no bulging or no hematomas felt. In the rectum is intact no stitches palpated no mass palpated.. And no external hemorrhoids were noted. Objective Labs 07/04/25 13:15 07/03/25 16:25 Labs: Laboratory Results - last 24 hr 07/03/25 07/04/25 16:25 13:15 WBC 13.8 H RBC 3.39 L Hgb 10.6 L D Hct 31.4 L MCV 93 MCH 31.3 MCHC 33.8 RDW Std Deviation 45.0 Plt Count 219 D Neut % (Auto) 79 Lymph % (Auto) 9 L [place] % (Auto) 10 Eos % (Auto) 1 Baso % (Auto) 0 Neut # (Auto) 10.9 H Lymph # (Auto) 1.3 [place] # (Auto) 1.4 H Eos # (Auto) 0.1 Baso # (Auto) 0.0 Immature Gran # (Auto) 0.12 H Absolute Nucleated RBC 0.00 Immature Gran % 1 H Nucleated RBC % 0 Syphilis Serology Nonreactive Assessment & Plan Problem List (1) perineal pain: Status: Acute Plan Comment Plan Comment: Add Tylenol with codeine as needed for pain. She continue to also use ibuprofen and regular Tylenol. Continue comfort measures such as Dermoplast and ice. Consulted with OB. CT pelvis was ordered. And then patient will be reassessed as needed Time Spent With Patient Time: Total time spent is greater than 50% in coordination of care (as documented) at patient's floor/unit and/or counseling patient:
--- NOTE | 2025-07-04 19:17 | XR_ITS ---
Examination: CT abdomen and pelvis without contrast. Coronal 3-D reconstructions. Sagittal 2-D reconstructions. Date and time of exam: July 04, 2025, 1935 hours INDICATIONS: vaginal delivery today with lower abdominal pain CTDI: vol (mGy): 9.05 DLP: (mGycm): 535 Technique: Axial images of the abdomen have been obtained, 3 mm slice thickness Intravenous contrast material has not been administered. Low dose protocols were performed. One or more of the following dose reduction techniques were used; automated exposure control, adjustment of the mA and/or KV according to patient size, use of iterative reconstruction technique. Findings: No focal liver or splenic lesions No gallstones No pancreatic or adrenal mass No renal or ureteral calculi, no hydronephrosis Small fat-containing umbilical hernia Aorta normal size Normal appendix uterus with dense thickened endometrial stripe, in the fundus measuring 21 mm in the lower uterine segment measuring 17 mm No pelvic hematoma Urinary bladder intact Osseous structures intact IMPRESSION: uterus with thickened endometrial stripe, consider pelvic sonography follow-up to assess for retained products of conception No pelvic hematoma
[2025-07-04] MEDS: ACETAMINOPHEN w/COD 300-30 TABLET 1 TAB PO (20:35)
[2025-07-05 00:08] VITALS: BP 105/69; PULSE 85; RESP 18; TEMP 36.7; O2SAT 97
[2025-07-05 04:25] VITALS: BP 111/75; PULSE 82; RESP 16; TEMP 36.8; O2SAT 96
--- NOTE | 2025-07-05 07:18 | PC.NURSE ---
07/04/25 0000 breast pump education amd demonstration provided, all questions answered.
[2025-07-05 08:00] VITALS: BP 102/65; PULSE 83; RESP 16; TEMP 36.7; O2SAT 97
--- NOTE | 2025-07-05 08:34 | ESPR_ITS ---
Subjective Subjective Interval history: Perineal pain improved after Tylenol 3. Patient is concerned now because she thinks she has pinkeye. She has been up walking and going to the bathroom to void. And caring for baby and breast-feeding Exam Vital Signs Temp Pulse Resp BP Pulse Ox O2 Del Method 98.0 F 83 16 102/65 97 Room Air 07/05/25 08:00 07/05/25 08:00 07/05/25 08:00 07/05/25 08:00 07/05/25 08:00 07/05/25 08:00 Narrative Exam Vital signs stable afebrile. Rest of soft. Fundus firm below umbilicus. Perineum intact with minimal swelling. No hemorrhoid. Midline repair looks great nose no swelling nontender. Small lochia. Uterus well involuted. Breasts are soft both scar look white there is no redness or swelling no discharge from the eyes Objective Labs 07/04/25 13:15 07/03/25 16:25 Labs: Laboratory Results - last 24 hr 07/04/25 13:15 WBC 13.8 H RBC 3.39 L Hgb 10.6 L D Hct 31.4 L MCV 93 MCH 31.3 MCHC 33.8 RDW Std Deviation 45.0 Plt Count 219 D Neut % (Auto) 79 Lymph % (Auto) 9 L [place] % (Auto) 10 Eos % (Auto) 1 Baso % (Auto) 0 Neut # (Auto) 10.9 H Lymph # (Auto) 1.3 [place] # (Auto) 1.4 H Eos # (Auto) 0.1 Baso # (Auto) 0.0 Immature Gran # (Auto) 0.12 H Absolute Nucleated RBC 0.00 Immature Gran % 1 H Nucleated RBC % 0 Assessment & Plan Problem List (1) perineal pain: Status: Acute Assessment and plan: 24 hr pp Assessment Comment Assessment comment: Discharge home with baby. Discussed comfort measures for midline episiotomy repair. Sitz bath's twice a day. Discussed danger signs and symptoms and ER precautions. Discussed signs and symptoms of infection. Increase fluids and roughage. And I discussed hygiene in regards to possible pinkeye and to see her family practice if she thinks she has pinkeye. Return in 3 weeks check Time Spent With Patient Time: Total time spent is greater than 50% in coordination of care (as documented) at patient's floor/unit and/or counseling patient:
--- NOTE | 2025-07-05 08:36 | PD.LDDS ---
DS: Providers Provider Date of admission: 07/03/25 16:49 Primary care physician: Physician No Primary/Family Admitting Provider: Angelina Wren CNM Attending Provider on Admission: Angelina Wren CNM Consults: 07/04/25 05:26 Referral Routine Comment: Attending Provider on DC: Angelina Wren CNM Discharging Provider: Angelina Wren CNM DS: Diagnosis Problem List Completed Was Problem List Reviewed/Reconciled?: Yes Summary/Hosp Course Brief History: 25-year-old 1 para 0 admitted to labor and delivery with contractions since 2 in the afternoon. She has been followed at 6 [facility]. Her first visit 7 weeks. Last. September 28, 2024. Estimated due date July 05, 2025. Reports regular contractions at 2 PM. Denies leaking or bleeding. She is O+, antibody screen negative, RPR nonreactive, rubella, hepatitis B negative, hep C negative, HIV negative, GC and Chlamydia were negative. Her GBS negative. She had a normal 1 hour 3-hour normal. NIPT and carrier screens all normal Peripartum Data Delivery Method: Normal Vaginal Delivery Episiotomy Description: Midline Laceration Description: no complications: none Time Spent with Patient Time attestation: Total time spent providing and/or coordinating discharge services: Exam Vital Signs Temp Pulse Resp BP Pulse Ox O2 Del Method 98.0 F 83 16 102/65 97 Room Air 07/05/25 08:00 07/05/25 08:00 07/05/25 08:00 07/05/25 08:00 07/05/25 08:00 07/05/25 08:00 Discharge Plan Plan Patient Disposition: HOME (Self Care) Patient condition on transfer: Stable Prescriptions/Referrals Prescriptions/Med Rec: No Action Vitamin 27 mg iron- 800 mcg tablet 1 tab PO QDAY Qty: 60 2RF Classic 28 mg iron- 800 mcg tablet PO Referrals: No Primary/Family,Physician [Primary Care Provider] Patient/Caregiver Discharge Instructions Meds to Beds: No Discharge Activity: resume usual activities Print Language: Arabic Activity Restrictions/Additional Instructions: Start time with baby. Continue vitamins and iron. Tylenol ibuprofen for pain. And patient can take 2 Tylenol PMs if the pain is severe. Discussed comfort measures for midline episiotomy. We discussed sitz bath and other things to help with pain and hemorrhoid pain increase fiber and fluids. Comfort measures and hygiene for denisse and see family practice if she does have it and then return in 3 weeks follow-up Stand Alone Forms: Kim Award Info., Patient Portal Info Letter Discharge Order Discharge Orders: Discharge (Routine); Ordered 07/05/25 Ordered By: Angelina Wren Planned Discharge Date 07/05/25
[2025-07-05] MEDS: DOCUSATE SOD 100 MG CAPSULE PO (08:58)
== END 2025-07-05 12:00 | disposition home or self-care (01) | DRG 807 ==
LOC: S4SX 18:29 → S4NX 07-04 05:30
PROVIDERS: Admitting Provider Advanced Practice Midwife; Visit Provider Advanced Practice Midwife
DX: O69.81X0 Labor and delivery complicated by cord around neck, without compression, not applicable or unspecified (principal); Z37.0 Single live birth; Z3A.39 39 weeks gestation of pregnancy; O70.0 First degree perineal laceration during delivery
CPT/HCPCS: 36415; 59025; 74176; 80053; 81001; 82570; 84156; 84550; 85025; 85384; 85610; 85730; 86780; 86850; 86900; 86901; J2590; J2795; J3010; J3490; S0191; A9270